=== PATIENT | male | born 1950 | race Hispanic/Latino ===

== ENCOUNTER 2017-07-25 21:11 | Emergency (ER) | payer OTHER ==
[2017-07-25 22:04] LABS: BASOPHILS % (AUTO) 0.9 % (0.0-5.0); EOSINOPHILS % (AUTO) 3.7 % (0.0-8.0); HEMATOCRIT 27.8 % (42-54); LYMPHOCYTES % (AUTO) 19.9 % (21.0-51.0); MEAN CORPUSCULAR HEMOGLOBIN 30.4 pg (27.0-33.0); MEAN CORPUSCULAR VOLUME 86.9 fL (79-99); MONOCYTES % (AUTO) 12.8 % (3.0-13.0); NEUTROPHILS % (AUTO) 62.7 % (40.0-77.0); NUCLEATED RED BLOOD CELLS 0.1 % (0.0-0.19); PLATELET COUNT (AUTO) 67 K/uL (130-400); RED CELL DISTRIBUTION WIDTH 14.4 % (11.0-15.5); WHITE BLOOD COUNT (AUTO) 2.3 K/uL (4.8-10.8)
[2017-07-25 22:21] LABS: CREATININE 1.6 mg/dL (0.5-1.5); POTASSIUM 3.7 mmol/L (3.5-5.1)
[2017-07-25 22:27] LABS: BAND NEUTROPHILS % (MANUAL) 1 % (0-2); BASOPHILS % (MANUAL) 1 % (0-2); EOSINOPHILS % (MANUAL) 5 % (1-6); LYMPHOCYTES % (MANUAL) 22 % (22-44); MAN.DIFF COMMENT-IMPRESSION MANUAL DIFFERENTIAL; MONOCYTES % (MANUAL) 8 % (2-9); REACTIVE LYMPHOCYTES 1 % (0-0); SEGMENTED NEUTROPHILS % 62 % (40-70)
[2017-07-25 22:28] LABS: B-TYPE NATRIURETIC PEPTIDE 127 pg/mL (0-100); PLATELET MORPHOLOGY COMMENT DECREASED
== END 2017-07-26 00:28 | disposition home or self-care (01) ==
LOC: EDH 21:11
DX: R60.9 Edema, unspecified (principal); D61.818 Other pancytopenia; E11.9 Type 2 diabetes mellitus without complications; E78.5 Hyperlipidemia, unspecified; I10 Essential (primary) hypertension
CPT/HCPCS: 36415; 80048; 83880; 84484; 85007; 85025; 93005; 93970

== ENCOUNTER 2018-01-02 09:53 | Emergency (ER) | payer OTHER ==
[2018-01-02] MEDS ORDERED: ACETAMINOPHEN EXTRA STRENGTH 500 MG TABLET ONE (10:15)
[2018-01-02 10:26] LABS: APPEARANCE,URINE Clear (CLEAR); BILIRUBIN,URINE Small (NEGATIVE); COLOR,URINE Dark Yellow (YELLOW); GLUCOSE, URINE (UA) Negative (NEGATIVE); KETONES,URINE Trace mg/dL (NEGATIVE); LEUKOCYTE ESTERASE ,URINE Trace (NEGATIVE); NITRATE,URINE Negative (NEGATIVE); OCCULT BLOOD,URINE Trace (NEGATIVE); PROTEIN,URINE POS 2+ (NEGATIVE)
[2018-01-02 11:09] LABS: BACTERIA,URINE Rare /HPF (None Seen); RBC,URINE 0-1 /HPF (0-1)
[2018-01-02 11:10] LABS: WBC,URINE 0-1 /HPF (0-1)
== END 2018-01-02 12:08 | disposition home or self-care (01) ==
LOC: EDH 09:53
DX: J06.9 Acute upper respiratory infection, unspecified (principal); E11.9 Type 2 diabetes mellitus without complications; E78.5 Hyperlipidemia, unspecified; I10 Essential (primary) hypertension; Z98.890 Other specified postprocedural states
CPT/HCPCS: 71045; 81001; 87804

== ENCOUNTER → 2018-06-01 | Outpatient (CLI) | payer OTHER | END | disposition home or self-care (01) | LOC: RAH 12:56 | PROVIDERS: ATTEND Internal Medicine | DX: D70.9 Neutropenia, unspecified (principal) | CPT/HCPCS: 93922 ==

== ENCOUNTER 2018-06-07 10:48 | Observation (INO) | payer OTHER ==
[~2018-06-07] VITALS: Ht 160 cm; Wt 111.7 kg
[2018-06-07] MEDS ORDERED: LIDOCAINE HCL-MPF 1% 2ML VIAL IJ PRN (12:00)
[2018-06-07] MEDS ORDERED: POTASSIUM CHLORIDE 20MEQ/100ML 100 ML IV PRN (12:00)
[2018-06-07] MEDS ORDERED: GUAIFENESIN-DM 200/20 MG 10 ML PO PRN (12:00)
[2018-06-07] MEDS ORDERED: ONDANSETRON HCL 4 MG/2 ML VIAL IVP PRN (12:00)
[2018-06-07] MEDS ORDERED: POTASSIUM CHLORIDE 10% ELIXIR 20 MEQ/15 ML UDCUP PO PRN (12:00)
[2018-06-07] MEDS ORDERED: ZOLPIDEM TARTRATE 5 MG TAB PO PRN (12:00)
[2018-06-07] MEDS ORDERED: SODIUM CHLORIDE 0.9% 10 ML VIAL IVP SCH (12:00)
[2018-06-07 12:57] VITALS: BP 165/72
[2018-06-07] MEDS ORDERED: FURO80TA3 PO (12:59)
[2018-06-07] MEDS ORDERED: LISI-613 PO (12:59)
[2018-06-07] MEDS ORDERED: GLIP10TA9 PO (12:59)
[2018-06-07] MEDS ORDERED: LINA5TAB PO (12:59)
[2018-06-07] MEDS ORDERED: FOLI1TAB15 PO (12:59)
[2018-06-07] MEDS ORDERED: PRAV20TA4 PO (12:59)
[2018-06-07 13:20] LABS: BASOPHILS % (AUTO) 0.3 % (0.0-5.0); CREATININE 1.7 mg/dL (0.5-1.5); EOSINOPHILS % (AUTO) 0.6 % (0.0-8.0); HEMATOCRIT 28.4 % (42-54); LYMPHOCYTES % (AUTO) 5.8 % (21.0-51.0); MEAN CORPUSCULAR HGB CONC 35.3 g/dL (32.0-36.0); MEAN CORPUSCULAR VOLUME 87.7 fL (79-99); MONOCYTES % (AUTO) 7.5 % (3.0-13.0); NEUTROPHILS % (AUTO) 85.8 % (40.0-77.0); PLATELET COUNT (AUTO) 59 K/uL (130-400); POTASSIUM 4.3 mmol/L (3.5-5.1); RED BLOOD CELL COUNT(AUTO) 3.24 MIL/uL (4.50-6.20); RED CELL DISTRIBUTION WIDTH 14.5 % (11.0-15.5); WHITE BLOOD COUNT (AUTO) 5.2 K/uL (4.8-10.8)
[2018-06-07 13:25] LABS: ALBUMIN 3.1 g/dL (3.5-5.0); BILIRUBIN,DIRECT 0.6 mg/dL (0.0-0.3); BILIRUBIN,TOTAL 2.7 mg/dL (0.2-1.0); TOTAL PROTEIN, SERUM 7.1 g/dL (6.0-8.3)
[2018-06-07 13:40] LABS: ALBUMIN 3.1 g/dL (3.5-5.0); BILIRUBIN,DIRECT 0.6 mg/dL (0.0-0.3); BILIRUBIN,TOTAL 2.9 mg/dL (0.2-1.0); CREATININE 1.8 mg/dL (0.5-1.5); POTASSIUM 4.4 mmol/L (3.5-5.1); TOTAL PROTEIN, SERUM 7.2 g/dL (6.0-8.3)
[2018-06-07 13:58] LABS: BASOPHILS % (AUTO) 0.8 % (0.0-5.0); EOSINOPHILS % (AUTO) 0.5 % (0.0-8.0); LYMPHOCYTES % (AUTO) 7.5 % (21.0-51.0); MEAN CORPUSCULAR HEMOGLOBIN 30.7 pg (27.0-33.0); MEAN CORPUSCULAR HGB CONC 34.7 g/dL (32.0-36.0); MEAN CORPUSCULAR VOLUME 88.4 fL (79-99); MONOCYTES % (AUTO) 8.3 % (3.0-13.0); NEUTROPHILS % (AUTO) 82.9 % (40.0-77.0); PLATELET COUNT (AUTO) 59 K/uL (130-400); RED BLOOD CELL COUNT(AUTO) 3.28 MIL/uL (4.50-6.20); RED CELL DISTRIBUTION WIDTH 14.5 % (11.0-15.5); WHITE BLOOD COUNT (AUTO) 5.5 K/uL (4.8-10.8)
[2018-06-07] MEDS: ACETAMINOPHEN 325 MG TAB PO PRN (14:07)
[2018-06-07 14:16] LABS: PLATELET MORPHOLOGY COMMENT DECREASED
[2018-06-07 15:09] LABS: APPEARANCE,URINE Clear (CLEAR); BILIRUBIN,URINE Negative (NEGATIVE); COLOR,URINE Dark Yellow (YELLOW); GLUCOSE, URINE (UA) Negative (NEGATIVE); KETONES,URINE Trace mg/dL (NEGATIVE); LEUKOCYTE ESTERASE ,URINE Negative (NEGATIVE); NITRATE,URINE Negative (NEGATIVE); OCCULT BLOOD,URINE Moderate (NEGATIVE); PH,URINE 5.5 (5.0-8.0); PROTEIN,URINE 300 (NEGATIVE)
[2018-06-07 15:53] LABS: BACTERIA,URINE Few /HPF (None Seen); RBC,URINE 0-1 /HPF (0-1); SQUAMOUS EPITHELIAL CELL,UR 0-2 /HPF (0-2); WBC,URINE 0-1 /HPF (0-1)
[2018-06-07 16:40] VITALS: BP 142/71
[2018-06-07] MEDS ORDERED: PHARMACY COMMUNICATION MISC SCH (19:00)
[2018-06-07] MEDS ORDERED: GLUCAGON 1MG KIT 1 MG ML IM PRN ×2 (19:15)
[2018-06-07] MEDS ORDERED: DEXTROSE 50%-WATER 50 ML DISP.SYRIN IV PRN ×2 (19:15)
[2018-06-07 19:45] VITALS: BP 126/59
[2018-06-07] MEDS: FAMOTIDINE 20MG TAB 20 MG TAB PO SCH (20:11)
[2018-06-07] MEDS: CEFTRIAXONE SODIUM 1 GM IVP SCH (20:11)
[2018-06-07 23:21] VITALS: BP 122/60
[2018-06-08 04:20] VITALS: BP 125/59
[2018-06-08 04:49] LABS: BASOPHILS % (AUTO) 0.6 % (0.0-5.0); EOSINOPHILS % (AUTO) 1.1 % (0.0-8.0); HEMATOCRIT 25.7 % (42-54); LYMPHOCYTES % (AUTO) 15.2 % (21.0-51.0); MEAN CORPUSCULAR VOLUME 88.5 fL (79-99); NEUTROPHILS % (AUTO) 72.1 % (40.0-77.0); PLATELET COUNT (AUTO) 52 K/uL (130-400); RED CELL DISTRIBUTION WIDTH 14.6 % (11.0-15.5)
[2018-06-08 05:06] LABS: ALBUMIN 2.6 g/dL (3.5-5.0); BILIRUBIN,DIRECT 0.5 mg/dL (0.0-0.3); BILIRUBIN,TOTAL 2.3 mg/dL (0.2-1.0); CREATININE 1.9 mg/dL (0.5-1.5); POTASSIUM 3.6 mmol/L (3.5-5.1)
[2018-06-08 05:08] LABS: INR 1.16 (0.85-1.15); PARTIAL THROMBOPLASTIN TIME 31.1 SEC (26.3-35.5); PROTHROMBIN TIME 12.1 SEC (9.6-11.6)
[2018-06-08] MEDS: HUMALOG PO SS1 SQ SCH ×2 (06:10→17:00)
[2018-06-08] MEDS: GLIPIZIDE 5 MG TABLET PO SCH ×2 (07:08→18:51)
[2018-06-08 07:50] VITALS: BP 171/78
[2018-06-08] MEDS: FOLIC ACID 1 MG TABLET PO SCH (08:03)
[2018-06-08] MEDS: LISINOPRIL 20 MG TABLET PO SCH (08:03)
[2018-06-08] MEDS: LINAGLIPTIN 5 MG TABLET PO SCH (08:03)
[2018-06-08] MEDS: ATORVASTATIN CALCIUM 10 MG TABLET PO SCH (08:03)
[2018-06-08] MEDS: FAMOTIDINE 20MG TAB 20 MG TAB PO SCH ×2 (08:06→21:08)
[2018-06-08] MEDS ORDERED: ALBUMIN (HUMAN) 25% 100 ML IV ONE (08:15)
[2018-06-08] MEDS ORDERED: FUROSEMIDE 10 MG/ML 4ML VIAL IV SCH (08:15)
[2018-06-08] MEDS: FUROSEMIDE 80 MG TABLET PO SCH (08:55)
[2018-06-08] MEDS: ENOXAPARIN SODIUM 30 MG/0.3 ML SQ SCH ×2 (08:56→10:26)
[2018-06-08 11:35] VITALS: BP 131/63
[2018-06-08 16:37] VITALS: BP 162/76
[2018-06-08 20:00] VITALS: BP 163/78
[2018-06-08] MEDS: CEFTRIAXONE SODIUM 1 GM IVP SCH (21:08)
[2018-06-08] MEDS: ACETAMINOPHEN 325 MG TAB PO PRN (21:16)
[2018-06-09] VITALS: BP 129/62
[2018-06-09 04:00] VITALS: BP 133/70
[2018-06-09 05:32] LABS: BASOPHILS % (AUTO) 0.7 % (0.0-5.0); EOSINOPHILS % (AUTO) 3.4 % (0.0-8.0); HEMATOCRIT 26.4 % (42-54); LYMPHOCYTES % (AUTO) 26.1 % (21.0-51.0); MEAN CORPUSCULAR HEMOGLOBIN 30.8 pg (27.0-33.0); MEAN CORPUSCULAR HGB CONC 34.8 g/dL (32.0-36.0); MEAN CORPUSCULAR VOLUME 88.4 fL (79-99); MONOCYTES % (AUTO) 12.7 % (3.0-13.0); NEUTROPHILS % (AUTO) 57.1 % (40.0-77.0); PLATELET COUNT (AUTO) 67 K/uL (130-400); RED BLOOD CELL COUNT(AUTO) 2.98 MIL/uL (4.50-6.20); RED CELL DISTRIBUTION WIDTH 14.7 % (11.0-15.5)
[2018-06-09 05:42] LABS: CREATININE 1.9 mg/dL (0.5-1.5); POTASSIUM 3.3 mmol/L (3.5-5.1)
[2018-06-09] MEDS: POTASSIUM CHLORIDE 20 MEQ ERTAB PO PRN ×3 (06:12→09:57)
[2018-06-09 07:51] VITALS: BP 139/75
[2018-06-09] MEDS: HUMALOG PO SS1 SQ SCH (08:00)
[2018-06-09] MEDS: ATORVASTATIN CALCIUM 10 MG TABLET PO SCH (09:46)
[2018-06-09] MEDS: LINAGLIPTIN 5 MG TABLET PO SCH (09:47)
[2018-06-09] MEDS: LISINOPRIL 20 MG TABLET PO SCH (09:47)
[2018-06-09] MEDS: FUROSEMIDE 80 MG TABLET PO SCH (09:47)
[2018-06-09] MEDS: ENOXAPARIN SODIUM 30 MG/0.3 ML SQ SCH (09:47)
[2018-06-09] MEDS: FAMOTIDINE 20MG TAB 20 MG TAB PO SCH (09:47)
[2018-06-09] MEDS: FOLIC ACID 1 MG TABLET PO SCH (09:47)
[2018-06-09] MEDS: GLIPIZIDE 5 MG TABLET PO SCH (09:57)
[2018-06-09 11:17] VITALS: BP 146/71
[2018-06-09] MEDS: CEFTRIAXONE SODIUM 1 GM IVP SCH (14:05)
== END 2018-06-09 14:54 | disposition home or self-care (01) ==
LOC: EDH 10:48 → EDHIP 10:49 → 4BH 12:40
PROVIDERS: ADMIT Internal Medicine; ATTEND Internal Medicine
DX: L03.116 Cellulitis of left lower limb (principal); M79.662 Pain in left lower leg; I12.9 Hypertensive chronic kidney disease with stage 1 through stage 4 chronic kidney disease, or unspecified chronic kidney disease; N18.3 Chronic kidney disease, stage 3 (moderate); E11.22 Type 2 diabetes mellitus with diabetic chronic kidney disease; E78.5 Hyperlipidemia, unspecified; K70.30 Alcoholic cirrhosis of liver without ascites; D61.818 Other pancytopenia; D73.1 Hypersplenism; K76.6 Portal hypertension
CPT/HCPCS: 36415 ×3; 80048 ×4; 80076 ×3; 81001; 82948 ×6; 85025 ×4; 85610; 85730; 87040 ×2; 93970; 96365; 96366; 96372 ×2; 96375 ×2; 96376 ×2; 99284; G0378 ×52; J0696 ×3; J1650 ×2; J1940; P9046

== ENCOUNTER 2018-08-03 21:25 | Emergency (ER) | payer OTHER ==
[~2018-08-03 21:25] MED LIST: FOLI1TAB15 PO; FURO80TA3 PO; GLIP10TA9 PO; LINA5TAB PO; LISI-613 PO; PRAV20TA4 PO
[2018-08-03] MEDS ORDERED: INSULIN HUMULIN R 100 UNIT/ML 3ML ONE (21:54)
[2018-08-03 21:56] LABS: BASOPHILS % (AUTO) 0.7 % (0.0-5.0); EOSINOPHILS % (AUTO) 27.9 % (0.0-8.0); LYMPHOCYTES % (AUTO) 23.4 % (21.0-51.0); MEAN CORPUSCULAR HGB CONC 35.3 g/dL (32.0-36.0); MEAN CORPUSCULAR VOLUME 87.7 fL (79-99); MONOCYTES % (AUTO) 7.4 % (3.0-13.0); NEUTROPHILS % (AUTO) 40.6 % (40.0-77.0); NUCLEATED RED BLOOD CELLS 0.1 % (0.0-0.19); PLATELET COUNT (AUTO) 70 K/uL (130-400); RED BLOOD CELL COUNT(AUTO) 3.65 MIL/uL (4.50-6.20); WHITE BLOOD COUNT (AUTO) 4.2 K/uL (4.8-10.8)
[2018-08-03 22:00] LABS: APPEARANCE,URINE Clear (CLEAR); BILIRUBIN,URINE Negative (NEGATIVE); COLOR,URINE Yellow (YELLOW); GLUCOSE, URINE (UA) >=1000 mg/dL (NEGATIVE); KETONES,URINE Negative (NEGATIVE); LEUKOCYTE ESTERASE ,URINE Negative (NEGATIVE); NITRATE,URINE Negative (NEGATIVE); OCCULT BLOOD,URINE Negative (NEGATIVE); PROTEIN,URINE Trace mg/dL (NEGATIVE)
[2018-08-03 22:08] LABS: INR 1.06 (0.85-1.15); PARTIAL THROMBOPLASTIN TIME 25.5 SEC (26.3-35.5); PROTHROMBIN TIME 11.1 SEC (9.6-11.6)
[2018-08-03 22:16] LABS: BACTERIA,URINE Rare /HPF (None Seen); RBC,URINE 0-1 /HPF (0-1); SQUAMOUS EPITHELIAL CELL,UR Few /HPF (0-2); WBC,URINE 0-1 /HPF (0-1)
[2018-08-03 22:17] LABS: ALBUMIN 3.3 g/dL (3.5-5.0); BILIRUBIN,TOTAL 1.1 mg/dL (0.2-1.0); CREATININE 2.7 mg/dL (0.5-1.5); POTASSIUM 3.8 mmol/L (3.5-5.1); TOTAL PROTEIN, SERUM 7.4 g/dL (6.0-8.3)
[2018-08-03 22:20] LABS: PLATELET MORPHOLOGY COMMENT DECREASED
== END 2018-08-03 23:45 | disposition home or self-care (01) ==
LOC: EDH 21:25
DX: E11.65 Type 2 diabetes mellitus with hyperglycemia (principal); E86.0 Dehydration; I10 Essential (primary) hypertension; E11.9 Type 2 diabetes mellitus without complications; E78.5 Hyperlipidemia, unspecified; Z98.890 Other specified postprocedural states
CPT/HCPCS: 36415; 70450; 71045; 80053; 81001; 82550; 82948 ×2; 84484; 85025; 85610; 85730; 93005; 96361; 96374; 99285; J1815

== ENCOUNTER → 2018-10-28 | Outpatient (CLI) | payer OTHER ==
[~2018-10-28] MED LIST changes: +FURO40TA5 PO; -FURO80TA3 PO; -LISI-613 PO; +LISI40TA4 PO; +MULT-1289 PO; +OMEP40CA37 PO; +SPIR50TA5 PO; +SUCR1TAB2 PO
== END | disposition home or self-care (01) ==
LOC: RAH 07:19
PROVIDERS: ATTEND Internal Medicine Gastroenterology
DX: K74.60 Unspecified cirrhosis of liver (principal); R18.8 Other ascites
CPT/HCPCS: 76700; 93975

== ENCOUNTER 2018-12-01 05:45 | Day surgery (SDC) | payer OTHER ==
[~2018-12-01] VITALS: Ht 160 cm; Wt 111.1 kg
[~2018-12-01 05:45] MED LIST changes: +SODIUM CHLORIDE 0.9% 1000ML 1,000 ML IV ONE
[2018-12-01 06:10] VITALS: BP 177/84
[2018-12-01] MEDS ORDERED: LIDOCAINE HCL 1% 20 ML VIAL ONE (06:21)
[2018-12-01] MEDS ORDERED: PROPOFOL 10 MG/ML 20ML VIAL IV ONE (06:21)
[2018-12-01 07:41] VITALS: BP 124/74
[2018-12-01 07:47] VITALS: BP 145/76
[2018-12-01 07:52] VITALS: BP 164/83
== END 2018-12-01 08:20 | disposition home or self-care (01) ==
LOC: DAH 05:45 → ENDO 05:45
PROVIDERS: ATTEND Internal Medicine Gastroenterology
DX: I85.00 Esophageal varices without bleeding (principal); K76.6 Portal hypertension; K70.30 Alcoholic cirrhosis of liver without ascites; K31.89 Other diseases of stomach and duodenum; E11.9 Type 2 diabetes mellitus without complications; I10 Essential (primary) hypertension; Z79.899 Other long term (current) drug therapy; Z79.84 Long term (current) use of oral hypoglycemic drugs; Z86.010 Personal history of colon polyps; Z98.890 Other specified postprocedural states; Z72.89 Other problems related to lifestyle; Z82.49 Family history of ischemic heart disease and other diseases of the circulatory system; Z83.3 Family history of diabetes mellitus; Z82.3 Family history of stroke
CPT/HCPCS: 43244; 82948 ×2; A4606; J2704; J7030; 43239; 45378

== ENCOUNTER → 2018-12-09 | Outpatient (CLI) | payer OTHER ==
[~2018-12-09] MED LIST changes: -SODIUM CHLORIDE 0.9% 1000ML 1,000 ML IV ONE
== END | disposition home or self-care (01) ==
LOC: SHCH 08:10
PROVIDERS: ATTEND Internal Medicine Cardiovascular Disease
DX: I11.0 Hypertensive heart disease with heart failure (principal); I50.32 Chronic diastolic (congestive) heart failure; I35.1 Nonrheumatic aortic (valve) insufficiency
CPT/HCPCS: 93306

== ENCOUNTER → 2019-01-11 | Outpatient (CLI) | payer OTHER ==
[~2019-01-11] MED LIST changes: +OMEP40CA13 PO; -OMEP40CA37 PO
== END | disposition home or self-care (01) ==
LOC: SHCH 15:19
PROVIDERS: ATTEND Internal Medicine Cardiovascular Disease
DX: Z09 Encounter for follow-up examination after completed treatment for conditions other than malignant neoplasm (principal)
CPT/HCPCS: 93971

== ENCOUNTER → 2019-04-20 | Outpatient (CLI) | payer OTHER | END | disposition home or self-care (01) | LOC: RAH 07:54 | PROVIDERS: ATTEND Internal Medicine Gastroenterology | DX: K74.60 Unspecified cirrhosis of liver (principal) | CPT/HCPCS: 76700; 93975 ==

== ENCOUNTER 2019-07-13 20:10 | Emergency (ER) | payer OTHER ==
[2019-07-13] MEDS ORDERED: ONDANSETRON HCL 4 MG/2 ML VIAL ONE (20:51)
[2019-07-13 21:40] LABS: ABG OXYGEN SATURATION 63.8 % (95.0-99.0); BASE EXCESS,VENOUS BLOOD GAS -2.7 (-2.0-3.0); HCO3,VENOUS BLOOD GAS 22.2 (21.0-28.0); PCO2,VENOUS BLOOD GAS 39 (35-48); PH,VENOUS BLOOD GAS 7.375 (7.350-7.450)
[2019-07-13 21:41] LABS: BASOPHILS % (AUTO) 0.4 % (0.0-5.0); EOSINOPHILS % (AUTO) 0.9 % (0.0-8.0); HEMATOCRIT 34.5 % (42-54); LYMPHOCYTES % (AUTO) 16.4 % (21.0-51.0); MEAN CORPUSCULAR HEMOGLOBIN 31.4 pg (27.0-33.0); MEAN CORPUSCULAR HGB CONC 35.9 g/dL (32.0-36.0); MEAN CORPUSCULAR VOLUME 87.3 fL (79-99); MONOCYTES % (AUTO) 8.2 % (3.0-13.0); NEUTROPHILS % (AUTO) 73.7 % (40.0-77.0); PLATELET COUNT (AUTO) 87 K/uL (130-400); RED BLOOD CELL COUNT(AUTO) 3.95 MIL/uL (4.50-6.20); RED CELL DISTRIBUTION WIDTH 12.7 % (11.0-15.5); WHITE BLOOD COUNT (AUTO) 5.4 K/uL (4.8-10.8)
[2019-07-13 22:00] LABS: ALBUMIN 3.5 g/dL (3.5-5.0); BILIRUBIN,DIRECT 0.4 mg/dL (0.0-0.3); BILIRUBIN,TOTAL 1.6 mg/dL (0.2-1.0); CREATININE 3.2 mg/dL (0.5-1.5); POTASSIUM 4.6 mmol/L (3.5-5.1)
[2019-07-13] MEDS ORDERED: INSULIN HUMULIN R 100 UNIT/ML 3ML ONE (22:02)
== END 2019-07-13 23:26 | disposition home or self-care (01) ==
LOC: EDH 20:10
DX: J20.9 Acute bronchitis, unspecified (principal); E11.65 Type 2 diabetes mellitus with hyperglycemia; R19.7 Diarrhea, unspecified; I10 Essential (primary) hypertension; E78.5 Hyperlipidemia, unspecified; Z98.890 Other specified postprocedural states
CPT/HCPCS: 36415; 36600; 71045; 80048; 80076; 82435; 82550; 82803; 82947; 82948; 83605; 83690; 84132; 84295; 85025; 87804 ×2; 93005; 96361; 96374; 96375; 99285; J1815; J2405

== ENCOUNTER 2019-07-17 18:57 | Emergency (ER) | payer OTHER ==
[2019-07-17] MEDS ORDERED: MECLIZINE HCL 25 MG TABLET ONE (19:34)
[2019-07-17 19:57] LABS: BASOPHILS % (AUTO) 0.5 % (0.0-5.0); EOSINOPHILS % (AUTO) 1.2 % (0.0-8.0); HEMATOCRIT 34.4 % (42-54); LYMPHOCYTES % (AUTO) 16.6 % (21.0-51.0); MEAN CORPUSCULAR HGB CONC 35.5 g/dL (32.0-36.0); MEAN CORPUSCULAR VOLUME 87.5 fL (79-99); MONOCYTES % (AUTO) 9.5 % (3.0-13.0); PLATELET COUNT (AUTO) 64 K/uL (130-400); RED BLOOD CELL COUNT(AUTO) 3.93 MIL/uL (4.50-6.20); RED CELL DISTRIBUTION WIDTH 12.8 % (11.0-15.5); WHITE BLOOD COUNT (AUTO) 4.2 K/uL (4.8-10.8)
[2019-07-17 19:59] LABS: APPEARANCE,URINE Clear (CLEAR); BILIRUBIN,URINE Negative (NEGATIVE); COLOR,URINE Yellow (YELLOW); GLUCOSE, URINE (UA) >=1000 mg/dL (NEGATIVE); KETONES,URINE Negative (NEGATIVE); LEUKOCYTE ESTERASE ,URINE Negative (NEGATIVE); NITRATE,URINE Negative (NEGATIVE); OCCULT BLOOD,URINE Negative (NEGATIVE); PH,URINE 5.5 (5.0-8.0); PROTEIN,URINE Negative (NEGATIVE)
[2019-07-17 20:11] LABS: ALBUMIN 3.2 g/dL (3.5-5.0); BILIRUBIN,TOTAL 1.3 mg/dL (0.2-1.0); CREATININE 2.8 mg/dL (0.5-1.5); POTASSIUM 4.7 mmol/L (3.5-5.1); TOTAL PROTEIN, SERUM 7.4 g/dL (6.0-8.3)
[2019-07-17] MEDS ORDERED: INSULIN HUMULIN R 100 UNIT/ML 3ML ONE ×2 (20:22→21:42)
[2019-07-17 20:24] LABS: BACTERIA,URINE Rare /HPF (None Seen); RBC,URINE None Seen /HPF (0-1); SQUAMOUS EPITHELIAL CELL,UR 0-2 /HPF (0-2); WBC,URINE None Seen /HPF (0-1)
== END 2019-07-17 23:15 | disposition home or self-care (01) ==
LOC: EDH 18:57
DX: E11.65 Type 2 diabetes mellitus with hyperglycemia (principal); I12.9 Hypertensive chronic kidney disease with stage 1 through stage 4 chronic kidney disease, or unspecified chronic kidney disease; E11.22 Type 2 diabetes mellitus with diabetic chronic kidney disease; N18.9 Chronic kidney disease, unspecified; E78.5 Hyperlipidemia, unspecified
CPT/HCPCS: 36415; 80053; 81001; 82550; 82948 ×3; 84484; 85025; 93005; 96361; 96374; 96376; 99284; J1815 ×2

== ENCOUNTER → 2019-12-09 | Outpatient (CLI) | payer OTHER | END | disposition home or self-care (01) | LOC: SHCH 14:58 | PROVIDERS: ATTEND Internal Medicine Cardiovascular Disease | DX: I87.2 Venous insufficiency (chronic) (peripheral) (principal) | CPT/HCPCS: 93970 ==

== ENCOUNTER → 2020-01-24 | Outpatient (CLI) | payer OTHER | END | disposition home or self-care (01) | LOC: SHCH 15:35 | PROVIDERS: ATTEND Internal Medicine Cardiovascular Disease | DX: I77.1 Stricture of artery (principal); I87.2 Venous insufficiency (chronic) (peripheral); Z09 Encounter for follow-up examination after completed treatment for conditions other than malignant neoplasm | CPT/HCPCS: 93971 ==

== ENCOUNTER 2020-05-16 18:28 | Inpatient (IN) | payer OTHER ==
[~2020-05-16] VITALS: Ht 162.6 cm; Wt 107.0 kg
[~2020-05-16 18:28] MED LIST changes: -LISI40TA4 PO; +LISI40TA9 PO; -OMEP40CA13 PO; +OMEP40CA21 PO
[2020-05-16 18:45] LABS: BASOPHILS % (AUTO) 0.2 % (0.0-5.0); EOSINOPHILS % (AUTO) 1.8 % (0.0-8.0); HEMATOCRIT 21.4 % (42-54); LYMPHOCYTES % (AUTO) 5.1 % (21.0-51.0); MEAN CORPUSCULAR HEMOGLOBIN 30.7 pg (27.0-33.0); MEAN CORPUSCULAR HGB CONC 32.2 g/dL (32.0-36.0); MEAN CORPUSCULAR VOLUME 95.1 fL (79-99); MONOCYTES % (AUTO) 2.9 % (3.0-13.0); NEUTROPHILS % (AUTO) 89.6 % (40.0-77.0); PLATELET COUNT (AUTO) 78 K/uL (130-400); RED BLOOD CELL COUNT(AUTO) 2.25 MIL/uL (4.50-6.20); RED CELL DISTRIBUTION WIDTH 19.9 % (11.0-15.5); WHITE BLOOD COUNT (AUTO) 4.9 K/uL (4.8-10.8)
[2020-05-16] MEDS ORDERED: ACETAMINOPHEN 500 MG TABLET ONE (18:47)
[2020-05-16 19:09] LABS: CARBON DIOXIDE 24 mmol/L (21-32); CHLORIDE 104 mmol/L (101-111); CREATININE 2.4 mg/dL (0.5-1.5); GLOMERULAR FILTR. RATE CALC 29 mL/min (>60); GLUCOSE,RANDOM 148 mg/dL (70-105); POTASSIUM 4.3 mmol/L (3.5-5.1); SODIUM SERUM 138 mmol/L (136-145); UREA NITROGEN, BLOOD 45 mg/dL (7-18)
[2020-05-16 19:15] LABS: INR 1.11 (0.85-1.15)
[2020-05-16 19:17] LABS: PARTIAL THROMBOPLASTIN TIME 23.9 SEC (26.3-35.5)
[2020-05-16 19:24] LABS: ALANINE AMINOTRANSFERASE 22 U/L (12-78); ALBUMIN 3.5 g/dL (3.5-5.0); ASPARTATE AMINOTRANSFERASE 35 U/L (10-37); BILIRUBIN,TOTAL 1.7 mg/dL (0.2-1.0); CREATINE KINASE, TOTAL 59 U/L (21-232); MYOGLOBIN 70 ng/mL (10-92); TOTAL PROTEIN, SERUM 7.7 g/dL (6.0-8.3); TROPONIN I < 0.04 ng/mL (0.00-0.06)
[2020-05-16] MEDS ORDERED: 0.9% NACL 500ML IV.SOLN 500 ML IV ONE (19:36)
[2020-05-16 19:59] LABS: PLATELET MORPHOLOGY DECREASED
[2020-05-16] MEDS ORDERED: VANCOMYCIN 1G/250ML KIT 250 ML IV ONE (21:53)
[2020-05-16] MEDS: CEFTRIAXONE 1G VIAL IVP SCH (22:00)
[2020-05-16] MEDS ORDERED: 0.9%NACL 10ML VIAL IVP PRN (22:15)
[2020-05-16] MEDS: 1/2 NS 1000ML 1,000 ML IV SCH (22:15)
[2020-05-16] MEDS ORDERED: COMPOUND IV REFRIGERATED 1 EACH IVSOLN MISC PRN (22:15)
[2020-05-16] MEDS ORDERED: VANCOMYCIN PROTOCOL PER PHARMACY IV SCH (22:15)
[2020-05-16] MEDS ORDERED: CEFTRIAXONE 1G VIAL ONE (23:29)
[2020-05-17 07:07] LABS: BASOPHILS % (AUTO) 0.2 % (0.0-5.0); EOSINOPHILS % (AUTO) 0.5 % (0.0-8.0); LYMPHOCYTES % (AUTO) 9.4 % (21.0-51.0); MEAN CORPUSCULAR HEMOGLOBIN 30.5 pg (27.0-33.0); MEAN CORPUSCULAR HGB CONC 31.4 g/dL (32.0-36.0); MEAN CORPUSCULAR VOLUME 97.1 fL (79-99); MONOCYTES % (AUTO) 9.8 % (3.0-13.0); NEUTROPHILS % (AUTO) 79.6 % (40.0-77.0); PLATELET COUNT (AUTO) 52 K/uL (130-400); RED BLOOD CELL COUNT(AUTO) 1.74 MIL/uL (4.50-6.20); WHITE BLOOD COUNT (AUTO) 4.4 K/uL (4.8-10.8)
[2020-05-17 07:14] LABS: HEMATOCRIT 16.9 % (42-54)
[2020-05-17 07:20] LABS: ALBUMIN 2.6 g/dL (3.5-5.0); BILIRUBIN,TOTAL 1.1 mg/dL (0.2-1.0); CREATININE 2.7 mg/dL (0.5-1.5); POTASSIUM 4.1 mmol/L (3.5-5.1); TOTAL PROTEIN, SERUM 5.9 g/dL (6.0-8.3)
[2020-05-17] MEDS: LINEZOLID 600 MG/ISO-OSM 300 ML IV SCH ×2 (08:30→23:56)
[2020-05-17] MEDS ORDERED: INSULIN HUMULIN R 100 UNIT/ML 3ML ONE (08:33)
[2020-05-17] MEDS ORDERED: PNEUMOCOCCAL VACCINE POLYVALENT 0.5 ML/VIAL [PPV] IM ONE (09:00)
[2020-05-17] MEDS ORDERED: FURO80TA3 PO (09:38)
[2020-05-17] MEDS ORDERED: METO5TAB7 PO (09:40)
[2020-05-17] MEDS ORDERED: PROP10TA10 PO (09:42)
[2020-05-17] MEDS ORDERED: INSU100V37 SQ (09:43)
[2020-05-17] MEDS: PNEUMOCOCCAL VACCINE POLYVALENT 0.5 ML/VIAL [PPV] IM SCH (09:45)
[2020-05-17] MEDS ORDERED: 1/2 NS 1000ML 1,000 ML IV ONE (10:29)
[2020-05-17 11:30] LABS: APPEARANCE,URINE Clear (CLEAR); BILIRUBIN,URINE Negative (NEGATIVE); COLOR,URINE Yellow (YELLOW); GLUCOSE, URINE (UA) Negative (NEGATIVE); KETONES,URINE Negative (NEGATIVE); LEUKOCYTE ESTERASE ,URINE Negative (NEGATIVE); NITRATE,URINE Negative (NEGATIVE); OCCULT BLOOD,URINE Negative (NEGATIVE); PH,URINE 5.5 (5.0-8.0); PROTEIN,URINE Negative (NEGATIVE)
[2020-05-17] MEDS: 1/2 NS 1000ML 1,000 ML IV SCH (11:35)
[2020-05-17] MEDS ORDERED: 0.9%NACL 100ML 100 ML IV ONE (12:28)
[2020-05-17] MEDS ORDERED: VANCOMYCIN 1G 1.5 GM in 0.9% NACL 250ML 250 ML IV SCH (15:00)
[2020-05-17 18:46] LABS: HEMATOCRIT 22.1 % (42-54)
[2020-05-17 20:55] LABS: CREATININE 2.6 mg/dL (0.5-1.5); POTASSIUM 3.6 mmol/L (3.5-5.1)
[2020-05-17 20:59] LABS: ALBUMIN 2.8 g/dL (3.5-5.0); BILIRUBIN,TOTAL 1.4 mg/dL (0.2-1.0); TOTAL PROTEIN, SERUM 6.6 g/dL (6.0-8.3)
[2020-05-17] MEDS: INSULIN R PO SS1 SQ SCH (21:00)
[2020-05-17] MEDS: CEFTRIAXONE 1G VIAL IVP SCH (22:00)
[2020-05-17 23:30] VITALS: BP 156/64
[2020-05-18] VITALS (17 sets, daily range): BP systolic 83–146; BP diastolic 37–80
[2020-05-18] MEDS: 1/2 NS 1000ML 1,000 ML IV SCH ×2 (00:55→14:15)
[2020-05-18 04:36] LABS: BASOPHILS % (AUTO) 0.3 % (0.0-5.0); EOSINOPHILS % (AUTO) 2.7 % (0.0-8.0); LYMPHOCYTES % (AUTO) 11.6 % (21.0-51.0); MEAN CORPUSCULAR HEMOGLOBIN 31.1 pg (27.0-33.0); MEAN CORPUSCULAR HGB CONC 33.2 g/dL (32.0-36.0); MEAN CORPUSCULAR VOLUME 93.9 fL (79-99); MONOCYTES % (AUTO) 11.3 % (3.0-13.0); NEUTROPHILS % (AUTO) 73.8 % (40.0-77.0); PLATELET COUNT (AUTO) 62 K/uL (130-400); RED BLOOD CELL COUNT(AUTO) 2.12 MIL/uL (4.50-6.20); RED CELL DISTRIBUTION WIDTH 19.1 % (11.0-15.5); WHITE BLOOD COUNT (AUTO) 3.7 K/uL (4.8-10.8)
[2020-05-18 04:40] LABS: HEMATOCRIT 19.9 % (42-54)
[2020-05-18 04:55] LABS: ALBUMIN 2.6 g/dL (3.5-5.0); BILIRUBIN,DIRECT 0.4 mg/dL (0.0-0.3); BILIRUBIN,TOTAL 1.3 mg/dL (0.2-1.0); CREATININE 2.3 mg/dL (0.5-1.5); POTASSIUM 3.7 mmol/L (3.5-5.1); TOTAL PROTEIN, SERUM 6.2 g/dL (6.0-8.3)
[2020-05-18] MEDS ORDERED: 0.9% NACL 250ML 250 ML IV ONE (05:26)
[2020-05-18] MEDS: INSULIN R PO SS1 SQ SCH ×2 (06:04→11:30)
[2020-05-18] MEDS ORDERED: PROPOFOL 10 MG/ML 20ML VIAL IV ONE (08:03)
[2020-05-18] MEDS ORDERED: LACT10SO9 PO (09:01)
[2020-05-18] MEDS: PANTOPRAZOLE 40 MG/VIAL IVP SCH (09:07)
[2020-05-18 09:24] LABS: HEMATOCRIT 21.7 % (42-54)
[2020-05-18] MEDS: PNEUMOCOCCAL VACCINE POLYVALENT 0.5 ML/VIAL [PPV] IM SCH (09:45)
[2020-05-18] MEDS: LINEZOLID 600 MG/ISO-OSM 300 ML IV SCH ×2 (09:50→21:15)
[2020-05-18] MEDS: LACTULOSE 20 GM/30 ML UDCUP PO SCH ×2 (10:02→21:15)
[2020-05-18] MEDS ORDERED: GLUCAGON 1MG KIT 1 MG ML IM PRN (15:15)
[2020-05-18] MEDS ORDERED: PHARMACY COMMUNICATION MISC SCH ×2 (15:15)
[2020-05-18] MEDS ORDERED: DEXTROSE 50%-WATER 50 ML DISP.SYRIN IV PRN (15:15)
[2020-05-18 15:18] LABS: HEMATOCRIT 24.2 % (42-54)
[2020-05-18] MEDS: HUMALOG PO SS1 SQ SCH ×2 (17:11→21:38)
[2020-05-18] MEDS: CEFTRIAXONE 1G VIAL IVP SCH (21:16)
[2020-05-19 03:25] VITALS: BP 138/54
[2020-05-19 05:39] LABS: BASOPHILS % (AUTO) 0.7 % (0.0-5.0); EOSINOPHILS % (AUTO) 4.7 % (0.0-8.0); HEMATOCRIT 23.7 % (42-54); LYMPHOCYTES % (AUTO) 18.1 % (21.0-51.0); MEAN CORPUSCULAR HEMOGLOBIN 29.8 pg (27.0-33.0); MEAN CORPUSCULAR HGB CONC 32.1 g/dL (32.0-36.0); MEAN CORPUSCULAR VOLUME 92.9 fL (79-99); MONOCYTES % (AUTO) 10.4 % (3.0-13.0); NEUTROPHILS % (AUTO) 65.8 % (40.0-77.0); PLATELET COUNT (AUTO) 63 K/uL (130-400); RED BLOOD CELL COUNT(AUTO) 2.55 MIL/uL (4.50-6.20); RED CELL DISTRIBUTION WIDTH 18.4 % (11.0-15.5)
[2020-05-19 06:08] LABS: ALBUMIN 2.5 g/dL (3.5-5.0); BILIRUBIN,TOTAL 1.1 mg/dL (0.2-1.0); POTASSIUM 3.9 mmol/L (3.5-5.1); TOTAL PROTEIN, SERUM 6.2 g/dL (6.0-8.3)
[2020-05-19] MEDS: HUMALOG PO SS1 SQ SCH ×2 (07:30→11:51)
[2020-05-19 08:00] VITALS: BP 160/73
[2020-05-19] MEDS: PNEUMOCOCCAL VACCINE POLYVALENT 0.5 ML/VIAL [PPV] IM SCH (09:45)
[2020-05-19] MEDS: PANTOPRAZOLE 40 MG/VIAL IVP SCH (09:49)
[2020-05-19] MEDS: LINEZOLID 600 MG/ISO-OSM 300 ML IV SCH (09:50)
[2020-05-19] MEDS: LACTULOSE 20 GM/30 ML UDCUP PO SCH (09:50)
[2020-05-19] MEDS ORDERED: HONEY 1 APPL/ML TUBE TP SCH (11:45)
[2020-05-19] MEDS ORDERED: HONEY 1 APPL/ML TUBE TP ONE (11:48)
[2020-05-19 12:00] VITALS: BP 143/76
== END 2020-05-19 12:35 | disposition home or self-care (01) | DRG 603 ==
LOC: EDH 18:28 → OBSVTOIN 21:35 → EDHIP 21:35 → 3AH 05-17 21:42
PROVIDERS: ADMIT Internal Medicine; ATTEND Internal Medicine
PROC: 3E0234Z Introduction of Serum, Toxoid and Vaccine into Muscle, Percutaneous Approach (ICD-10-PCS; principal; 2020-05-17)
PROC: 30233N1 Transfusion of Nonautologous Red Blood Cells into Peripheral Vein, Percutaneous Approach (ICD-10-PCS; 2020-05-17)
PROC: 0DB98ZX Excision of Duodenum, Via Natural or Artificial Opening Endoscopic, Diagnostic (ICD-10-PCS; 2020-05-18)
PROC: 0DB68ZX Excision of Stomach, Via Natural or Artificial Opening Endoscopic, Diagnostic (ICD-10-PCS; 2020-05-18)
DX: L03.115 Cellulitis of right lower limb (principal); N17.9 Acute kidney failure, unspecified; N18.4 Chronic kidney disease, stage 4 (severe); L97.919 Non-pressure chronic ulcer of unspecified part of right lower leg with unspecified severity; Z68.41 Body mass index [BMI] 40.0-44.9, adult; D50.9 Iron deficiency anemia, unspecified; I12.9 Hypertensive chronic kidney disease with stage 1 through stage 4 chronic kidney disease, or unspecified chronic kidney disease; E11.22 Type 2 diabetes mellitus with diabetic chronic kidney disease; D69.59 Other secondary thrombocytopenia; K72.90 Hepatic failure, unspecified without coma; Z20.822 Contact with and (suspected) exposure to COVID-19; E11.51 Type 2 diabetes mellitus with diabetic peripheral angiopathy without gangrene; E78.5 Hyperlipidemia, unspecified; I25.10 Atherosclerotic heart disease of native coronary artery without angina pectoris; K74.60 Unspecified cirrhosis of liver; E11.621 Type 2 diabetes mellitus with foot ulcer; E66.9 Obesity, unspecified; K22.8 Other specified diseases of esophagus; K29.70 Gastritis, unspecified, without bleeding; R19.5 Other fecal abnormalities; Z23 Encounter for immunization
CPT/HCPCS: 36415; 36430; 43239; 71045; 73590; 76700; 80048; 80053; 80076; 81003; 82140; 82270; 82550; 82948; 83605; 83874; 84145; 84484; 85014; 85018; 85025; 85610; 85730; 86850; 86900; 86901; 86923; 87040; 87088; 87426; 87804; 88305; 88342; 90732; 93005; A4606; C9113; G0378; J0696; J1815; J2020; J2704; J3370; J7040; J7050; P9016; U0003

== ENCOUNTER 2020-07-10 15:18 | Inpatient (IN) | payer OTHER ==
[~2020-07-10] VITALS: Ht 162.6 cm; Wt 99.7 kg
[~2020-07-10 15:18] MED LIST changes: -FURO40TA5 PO; +FURO80TA3 PO; -GLIP10TA9 PO; +INSU100V37 SQ; +LACT10SO9 PO; -LINA5TAB PO; -LISI40TA9 PO; +METO5TAB7 PO; -MULT-1289 PO; -PRAV20TA4 PO; +PROP10TA10 PO
[2020-07-10] MEDS ORDERED: GUAIFENESIN-DM 200/20 MG 10 ML PO PRN (16:15)
[2020-07-10] MEDS ORDERED: ONDANSETRON 4MG INJ IVP PRN (16:15)
[2020-07-10] MEDS ORDERED: ZOLPIDEM TARTRATE 5 MG TAB PO PRN (16:15)
[2020-07-10] MEDS ORDERED: DIPHENHYDRAMINE HCL 25 MG CAPSULE PO PRN (16:15)
[2020-07-10] MEDS ORDERED: 0.9%NACL 10ML VIAL IVP SCH (16:15)
[2020-07-10] MEDS ORDERED: ACETAMINOPHEN 325 MG TAB PO PRN (16:15)
[2020-07-10 16:51] LABS: CREATININE 1.9 mg/dL (0.5-1.5); POTASSIUM 3.9 mmol/L (3.5-5.1)
[2020-07-10 16:56] LABS: ALBUMIN 3.4 g/dL (3.5-5.0); BILIRUBIN,DIRECT 0.3 mg/dL (0.0-0.3); TOTAL PROTEIN, SERUM 7.3 g/dL (6.0-8.3)
[2020-07-10 17:14] LABS: BASOPHILS % (AUTO) 0.5 % (0.0-5.0); EOSINOPHILS % (AUTO) 4.3 % (0.0-8.0); LYMPHOCYTES % (AUTO) 18.8 % (21.0-51.0); MEAN CORPUSCULAR HEMOGLOBIN 29.4 pg (27.0-33.0); MEAN CORPUSCULAR HGB CONC 32.3 g/dL (32.0-36.0); MONOCYTES % (AUTO) 9.3 % (3.0-13.0); NEUTROPHILS % (AUTO) 66.1 % (40.0-77.0); PLATELET COUNT (AUTO) 97 K/uL (130-400); RED BLOOD CELL COUNT(AUTO) 2.21 MIL/uL (4.50-6.20); RED CELL DISTRIBUTION WIDTH 17.3 % (11.0-15.5)
[2020-07-10 17:23] LABS: HEMATOCRIT 20.1 % (42-54)
[2020-07-11 05:33] LABS: CREATININE 1.9 mg/dL (0.5-1.5); POTASSIUM 3.8 mmol/L (3.5-5.1)
[2020-07-11 06:11] LABS: BASOPHILS % (AUTO) 0.7 % (0.0-5.0); EOSINOPHILS % (AUTO) 6.3 % (0.0-8.0); MEAN CORPUSCULAR HEMOGLOBIN 29.1 pg (27.0-33.0); MEAN CORPUSCULAR HGB CONC 32.4 g/dL (32.0-36.0); MEAN CORPUSCULAR VOLUME 89.8 fL (79-99); MONOCYTES % (AUTO) 11.9 % (3.0-13.0); PLATELET COUNT (AUTO) 74 K/uL (130-400); RED BLOOD CELL COUNT(AUTO) 2.06 MIL/uL (4.50-6.20); RED CELL DISTRIBUTION WIDTH 16.9 % (11.0-15.5); WHITE BLOOD COUNT (AUTO) 2.7 K/uL (4.8-10.8)
[2020-07-11 06:17] LABS: HEMATOCRIT 18.5 % (42-54)
[2020-07-11 06:48] LABS: BAND NEUTROPHILS % (MANUAL) 5 % (0-2); EOSINOPHILS % (MANUAL) 6 % (1-6); LYMPHOCYTES % (MANUAL) 25 % (22-44); MAN.DIFF COMMENT-IMPRESSION MANUAL DIFFERENTIAL; MONOCYTES % (MANUAL) 4 % (2-9); PLATELET MORPHOLOGY COMMENT DECREASED; SEGMENTED NEUTROPHILS % 60 % (40-70)
[2020-07-11 09:41] LABS: HEMATOCRIT 19.1 % (42-54)
[2020-07-11 09:46] LABS: INR 1.21 (0.85-1.15)
[2020-07-11 09:48] LABS: PARTIAL THROMBOPLASTIN TIME 28.9 SEC (26.3-35.5)
[2020-07-11] MEDS ORDERED: 0.9% NACL 250ML 250 ML IV ONE (10:41)
[2020-07-11 16:10] LABS: BASOPHILS % (AUTO) 0.4 % (0.0-5.0); EOSINOPHILS % (AUTO) 4.3 % (0.0-8.0); HEMATOCRIT 21.1 % (42-54); LYMPHOCYTES % (AUTO) 18.2 % (21.0-51.0); MEAN CORPUSCULAR HEMOGLOBIN 30.6 pg (27.0-33.0); MEAN CORPUSCULAR HGB CONC 34.1 g/dL (32.0-36.0); MEAN CORPUSCULAR VOLUME 89.8 fL (79-99); MONOCYTES % (AUTO) 11.4 % (3.0-13.0); PLATELET COUNT (AUTO) 69 K/uL (130-400); RED BLOOD CELL COUNT(AUTO) 2.35 MIL/uL (4.50-6.20); RED CELL DISTRIBUTION WIDTH 16.8 % (11.0-15.5); WHITE BLOOD COUNT (AUTO) 2.8 K/uL (4.8-10.8)
[2020-07-11 22:31] VITALS: BP 151/66
[2020-07-12] VITALS (20 sets, daily range): BP systolic 93–172; BP diastolic 36–95
[2020-07-12 06:10] LABS: BASOPHILS % (AUTO) 0.6 % (0.0-5.0); EOSINOPHILS % (AUTO) 2.6 % (0.0-8.0); LYMPHOCYTES % (AUTO) 10.9 % (21.0-51.0); MEAN CORPUSCULAR HEMOGLOBIN 29.7 pg (27.0-33.0); MEAN CORPUSCULAR HGB CONC 32.9 g/dL (32.0-36.0); MEAN CORPUSCULAR VOLUME 90.4 fL (79-99); MONOCYTES % (AUTO) 8.6 % (3.0-13.0); NEUTROPHILS % (AUTO) 76.4 % (40.0-77.0); PLATELET COUNT (AUTO) 81 K/uL (130-400); RED BLOOD CELL COUNT(AUTO) 2.29 MIL/uL (4.50-6.20); RED CELL DISTRIBUTION WIDTH 16.8 % (11.0-15.5); WHITE BLOOD COUNT (AUTO) 3.5 K/uL (4.8-10.8)
[2020-07-12 06:16] LABS: ALBUMIN 2.6 g/dL (3.5-5.0); BILIRUBIN,TOTAL 1.8 mg/dL (0.2-1.0); CREATININE 1.7 mg/dL (0.5-1.5); POTASSIUM 3.9 mmol/L (3.5-5.1); TOTAL PROTEIN, SERUM 6.1 g/dL (6.0-8.3)
[2020-07-12 06:18] LABS: HEMATOCRIT 20.7 % (42-54)
[2020-07-12] MEDS ORDERED: 0.9% NACL 250ML 250 ML IV ONE (07:58)
[2020-07-12] MEDS: CEFTRIAXONE 1G VIAL IVP SCH (10:21)
[2020-07-12] MEDS ORDERED: PRAV20TA4 PO (11:13)
[2020-07-12 12:48] LABS: HEMATOCRIT 22.7 % (42-54)
[2020-07-12] MEDS ORDERED: PROPOFOL 10 MG/ML 20ML VIAL IV ONE (14:40)
[2020-07-12] MEDS ORDERED: GLYCOPYRROLATE 1 MG/5 ML SYRINGE ONE (14:41)
[2020-07-12] MEDS ORDERED: LIDOCAINE HCL 1% 20 ML VIAL ONE (15:25)
[2020-07-13 04:20] VITALS: BP 113/47
[2020-07-13 05:06] LABS: BASOPHILS % (AUTO) 0.7 % (0.0-5.0); EOSINOPHILS % (AUTO) 4.3 % (0.0-8.0); HEMATOCRIT 22.3 % (42-54); LYMPHOCYTES % (AUTO) 20.3 % (21.0-51.0); MEAN CORPUSCULAR HEMOGLOBIN 29.4 pg (27.0-33.0); MEAN CORPUSCULAR HGB CONC 32.7 g/dL (32.0-36.0); MEAN CORPUSCULAR VOLUME 89.9 fL (79-99); MONOCYTES % (AUTO) 9.8 % (3.0-13.0); NEUTROPHILS % (AUTO) 63.8 % (40.0-77.0); PLATELET COUNT (AUTO) 70 K/uL (130-400); RED BLOOD CELL COUNT(AUTO) 2.48 MIL/uL (4.50-6.20); RED CELL DISTRIBUTION WIDTH 17.1 % (11.0-15.5); WHITE BLOOD COUNT (AUTO) 2.8 K/uL (4.8-10.8)
[2020-07-13 05:24] LABS: ALBUMIN 2.6 g/dL (3.5-5.0); BILIRUBIN,TOTAL 1.7 mg/dL (0.2-1.0); CREATININE 1.6 mg/dL (0.5-1.5); POTASSIUM 3.9 mmol/L (3.5-5.1); TOTAL PROTEIN, SERUM 6.1 g/dL (6.0-8.3)
[2020-07-13] MEDS: PANTOPRAZOLE 40 MG TAB DR PO SCH (08:09)
[2020-07-13] MEDS: CEFTRIAXONE 1G VIAL IVP SCH (08:09)
[2020-07-13 08:13] VITALS: BP 135/64
[2020-07-13 09:26] LABS: % IRON SATURATION 35.5 % (30-44)
[2020-07-13 11:21] VITALS: BP 120/56
[2020-07-13] MEDS: FOLIC ACID 1 MG TABLET PO SCH (13:11)
[2020-07-13] MEDS: CYANOCOBALAMIN (VITAMIN B-12) 1,000 MCG TABLET PO SCH (13:11)
[2020-07-13 16:29] VITALS: BP 139/57
[2020-07-13 20:11] VITALS: BP 120/46
[2020-07-13 23:31] VITALS: BP 131/52
[2020-07-14 04:09] VITALS: BP 129/61
[2020-07-14 05:28] LABS: BASOPHILS % (AUTO) 0.9 % (0.0-5.0); EOSINOPHILS % (AUTO) 7.2 % (0.0-8.0); HEMATOCRIT 21.7 % (42-54); LYMPHOCYTES % (AUTO) 22.1 % (21.0-51.0); MEAN CORPUSCULAR HEMOGLOBIN 30.2 pg (27.0-33.0); MEAN CORPUSCULAR HGB CONC 33.6 g/dL (32.0-36.0); MEAN CORPUSCULAR VOLUME 89.7 fL (79-99); MONOCYTES % (AUTO) 12.8 % (3.0-13.0); NEUTROPHILS % (AUTO) 56.6 % (40.0-77.0); PLATELET COUNT (AUTO) 65 K/uL (130-400); RED BLOOD CELL COUNT(AUTO) 2.42 MIL/uL (4.50-6.20); RED CELL DISTRIBUTION WIDTH 16.7 % (11.0-15.5); WHITE BLOOD COUNT (AUTO) 2.4 K/uL (4.8-10.8)
[2020-07-14 06:10] LABS: ALBUMIN 2.6 g/dL (3.5-5.0); BILIRUBIN,TOTAL 0.7 mg/dL (0.2-1.0); CREATININE 1.7 mg/dL (0.5-1.5); POTASSIUM 3.7 mmol/L (3.5-5.1)
[2020-07-14 07:30] VITALS: BP 129/55
[2020-07-14] MEDS: CEFTRIAXONE 1G VIAL IVP SCH (08:37)
[2020-07-14] MEDS: CYANOCOBALAMIN (VITAMIN B-12) 1,000 MCG TABLET PO SCH (08:37)
[2020-07-14] MEDS: PANTOPRAZOLE 40 MG TAB DR PO SCH (08:37)
[2020-07-14] MEDS: FOLIC ACID 1 MG TABLET PO SCH (08:37)
== END 2020-07-14 10:35 | disposition home or self-care (01) | DRG 812 ==
LOC: EDH 15:18 → EDHIP 15:19 → OBSVTOIN 15:19 → EDHIP 07-11 10:46 → 3CH 07-11 22:28
PROVIDERS: ADMIT Internal Medicine; ATTEND Internal Medicine
PROC: 30233N1 Transfusion of Nonautologous Red Blood Cells into Peripheral Vein, Percutaneous Approach (ICD-10-PCS; principal; 2020-07-12)
PROC: 0DJ08ZZ Inspection of Upper Intestinal Tract, Via Natural or Artificial Opening Endoscopic (ICD-10-PCS; 2020-07-12)
DX: D62 Acute posthemorrhagic anemia (principal); K76.6 Portal hypertension; R18.8 Other ascites; K29.00 Acute gastritis without bleeding; D61.818 Other pancytopenia; E11.22 Type 2 diabetes mellitus with diabetic chronic kidney disease; N18.9 Chronic kidney disease, unspecified; I12.9 Hypertensive chronic kidney disease with stage 1 through stage 4 chronic kidney disease, or unspecified chronic kidney disease; E78.5 Hyperlipidemia, unspecified; M25.572 Pain in left ankle and joints of left foot; K74.60 Unspecified cirrhosis of liver; D73.1 Hypersplenism; K31.89 Other diseases of stomach and duodenum; R53.81 Other malaise; Z20.822 Contact with and (suspected) exposure to COVID-19
CPT/HCPCS: 36415; 36430; 43235; 73610; 73721; 76700; 80048; 80053; 82140; 82150; 82248; 82948; 83540; 83550; 83690; 85014; 85018; 85025; 85610; 85730; 86850; 86900; 86901; 86923; 87426; A4606; G0378; J0696; J2704; J3490; J7030; J7050; P9016; U0003

== ENCOUNTER → 2020-07-27 | Outpatient (CLI) | payer OTHER ==
[~2020-07-27] MED LIST changes: +OMEP40CA13 PO; -OMEP40CA21 PO; +PRAV20TA4 PO
== END | disposition home or self-care (01) ==
LOC: RAH 07-19 07:28
PROVIDERS: ATTEND Internal Medicine Gastroenterology
DX: K74.60 Unspecified cirrhosis of liver (principal); R16.1 Splenomegaly, not elsewhere classified
CPT/HCPCS: 76700; 93975

== ENCOUNTER → 2020-08-07 | Outpatient (CLI) | payer OTHER | END | disposition home or self-care (01) | LOC: SHCH 15:04 | PROVIDERS: ATTEND Internal Medicine Cardiovascular Disease | DX: Z09 Encounter for follow-up examination after completed treatment for conditions other than malignant neoplasm (principal); I87.2 Venous insufficiency (chronic) (peripheral) | CPT/HCPCS: 93971 ==

== ENCOUNTER 2020-09-13 09:41 | Inpatient (IN) | payer OTHER ==
[~2020-09-13] VITALS: Ht 162.6 cm; Wt 103.4 kg
[~2020-09-13 09:41] MED LIST changes: -OMEP40CA13 PO; +OMEP40CA21 PO
[2020-09-13] MEDS ORDERED: 0.9%NACL 10ML VIAL IVP PRN (10:00)
[2020-09-13] MEDS ORDERED: 0.9%NACL 50ML 50 ML IV SCH (10:15)
[2020-09-13] MEDS ORDERED: 0.9% NACL 250ML 250 ML IV SCH ×2 (10:15)
[2020-09-13] MEDS ORDERED: VANCOMYCIN 1G VIAL IV SCH (10:15)
[2020-09-13 10:38] VITALS: BP 145/70
[2020-09-13 10:40] LABS: BASOPHILS % (AUTO) 0.7 % (0.0-5.0); EOSINOPHILS % (AUTO) 3.7 % (0.0-8.0); HEMATOCRIT 26.4 % (42-54); LYMPHOCYTES % (AUTO) 18.4 % (21.0-51.0); MEAN CORPUSCULAR HEMOGLOBIN 31.7 pg (27.0-33.0); MEAN CORPUSCULAR HGB CONC 33.7 g/dL (32.0-36.0); NEUTROPHILS % (AUTO) 70.8 % (40.0-77.0); PLATELET COUNT (AUTO) 51 K/uL (130-400); RED BLOOD CELL COUNT(AUTO) 2.81 MIL/uL (4.50-6.20); RED CELL DISTRIBUTION WIDTH 13.4 % (11.0-15.5); WHITE BLOOD COUNT (AUTO) 2.7 K/uL (4.8-10.8)
[2020-09-13 10:49] LABS: CREATININE 2.3 mg/dL (0.5-1.5); POTASSIUM 4.7 mmol/L (3.5-5.1)
[2020-09-13 10:54] LABS: ALBUMIN 2.7 g/dL (3.5-5.0); BILIRUBIN,DIRECT 0.3 mg/dL (0.0-0.3)
[2020-09-13 10:58] LABS: INR 1.04 (0.85-1.15); PROTHROMBIN TIME 11.3 SEC (9.6-11.6)
[2020-09-13 11:44] LABS: BAND NEUTROPHILS % (MANUAL) 2 % (0-2); EOSINOPHILS % (MANUAL) 5 % (1-6); LYMPHOCYTES % (MANUAL) 19 % (22-44); MAN.DIFF COMMENT-IMPRESSION MANUAL DIFFERENTIAL; MONOCYTES % (MANUAL) 3 % (2-9); SEGMENTED NEUTROPHILS % 71 % (40-70)
[2020-09-13 11:45] LABS: PLATELET MORPHOLOGY COMMENT DECREASED
[2020-09-13 11:59] VITALS: BP 145/70
[2020-09-13] MEDS ORDERED: ALBUTEROL 0.083% 2.5 MG/3 ML INH IH PRN (13:00)
[2020-09-13] MEDS ORDERED: DIPHENHYDRAMINE HCL 25 MG CAPSULE PO PRN (13:00)
[2020-09-13] MEDS ORDERED: ONDANSETRON 4MG INJ IVP PRN (13:00)
[2020-09-13] MEDS ORDERED: DEXTROSE 50%-WATER 50 ML DISP.SYRIN IV PRN (13:00)
[2020-09-13] MEDS ORDERED: IPRATROPIUM/ALBUTEROL SULFATE 3 ML SOLUTION IH PRN ×2 (13:00)
[2020-09-13] MEDS ORDERED: ACETAMINOPHEN 325 MG TAB PO PRN (13:00)
[2020-09-13] MEDS ORDERED: LACTULOSE 20 GM/30 ML UDCUP PO PRN (13:00)
[2020-09-13] MEDS ORDERED: GUAIFENESIN-DM 200/20 MG 10 ML PO PRN (13:00)
[2020-09-13] MEDS ORDERED: GLUCAGON 1MG KIT 1 MG ML IM PRN (13:00)
[2020-09-13] MEDS ORDERED: 0.9%NACL 100ML 100 ML ONE (13:23)
[2020-09-13] MEDS ORDERED: PIP/TAZ ZOSYN 3.375G 3.375 GM VIAL IVPB SCH (14:00)
[2020-09-13] MEDS: ZOSYN 3.375 IV SCH ×2 (14:35→23:30)
[2020-09-13 16:18] VITALS: BP 158/79
[2020-09-13] MEDS ORDERED: INSULIN R PO SSI SQ SCH (16:30)
[2020-09-13 20:00] VITALS: BP 170/68
[2020-09-13 21:00] VITALS: BP 169/74
[2020-09-13] MEDS ORDERED: VANCOMYCIN 1G VIAL IVPB SCH (21:00)
[2020-09-13] MEDS: INSULIN LISPRO 100 UNIT/ML 3ML SQ SCH (21:00)
[2020-09-13] MEDS ORDERED: ZOSYN 3.375GM+NS 50ML 50 ML IV ONE (23:22)
[2020-09-13] MEDS ORDERED: FUROSEMIDE 40 MG TABLET ONE (23:22)
[2020-09-13] MEDS ORDERED: VANCOMYCIN 1G/250ML KIT 250 ML IV ONE (23:23)
[2020-09-13] MEDS: VANCOMYCIN 1G VIAL IV SCH (23:30)
[2020-09-13] MEDS: FUROSEMIDE 80 MG TABLET PO SCH (23:30)
[2020-09-14] VITALS (7 sets, daily range): BP systolic 117–185; BP diastolic 65–82
[2020-09-14 05:33] LABS: BASOPHILS % (AUTO) 0.7 % (0.0-5.0); EOSINOPHILS % (AUTO) 4.4 % (0.0-8.0); HEMATOCRIT 25.7 % (42-54); LYMPHOCYTES % (AUTO) 20.5 % (21.0-51.0); MEAN CORPUSCULAR HEMOGLOBIN 30.6 pg (27.0-33.0); MEAN CORPUSCULAR HGB CONC 33.1 g/dL (32.0-36.0); MEAN CORPUSCULAR VOLUME 92.4 fL (79-99); MONOCYTES % (AUTO) 5.7 % (3.0-13.0); NEUTROPHILS % (AUTO) 68.4 % (40.0-77.0); PLATELET COUNT (AUTO) 54 K/uL (130-400); RED BLOOD CELL COUNT(AUTO) 2.78 MIL/uL (4.50-6.20); RED CELL DISTRIBUTION WIDTH 13.3 % (11.0-15.5)
[2020-09-14 05:49] LABS: ALBUMIN 2.6 g/dL (3.5-5.0); BILIRUBIN,TOTAL 1.4 mg/dL (0.2-1.0); CREATININE 2.2 mg/dL (0.5-1.5); TOTAL PROTEIN, SERUM 6.8 g/dL (6.0-8.3)
[2020-09-14] MEDS: ZOSYN 3.375 IV SCH (06:00)
[2020-09-14] MEDS ORDERED: CYAN25002 SL (07:00)
[2020-09-14] MEDS ORDERED: KETO5DRO39 OD (07:00)
[2020-09-14] MEDS ORDERED: iron PO (07:00)
[2020-09-14] MEDS ORDERED: LINE600T14 PO (07:00)
[2020-09-14] MEDS: INSULIN LISPRO 100 UNIT/ML 3ML SQ SCH ×2 (09:00→21:00)
[2020-09-14] MEDS: FUROSEMIDE 80 MG TABLET PO SCH ×2 (09:59→21:30)
[2020-09-14] MEDS: VANCOMYCIN 1G VIAL IV SCH ×2 (10:00→21:32)
[2020-09-14] MEDS: SPIRONOLACTONE 25 MG TAB PO SCH (10:00)
[2020-09-14] MEDS: METOLAZONE 2.5 MG TABLET PO SCH (10:00)
[2020-09-14] MEDS: CYANOCOBALAMIN (VITAMIN B-12) 1000 MCG/ML 1ML VIAL IM SCH (10:01)
[2020-09-15 04:00] VITALS: BP 131/63
[2020-09-15 08:07] VITALS: BP 139/69
[2020-09-15] MEDS: INSULIN LISPRO 100 UNIT/ML 3ML SQ SCH ×2 (09:00→18:33)
[2020-09-15] MEDS: CYANOCOBALAMIN (VITAMIN B-12) 1000 MCG/ML 1ML VIAL IM SCH (10:53)
[2020-09-15] MEDS: SPIRONOLACTONE 25 MG TAB PO SCH (10:53)
[2020-09-15] MEDS: FUROSEMIDE 80 MG TABLET PO SCH ×2 (10:57→20:13)
[2020-09-15] MEDS: METOLAZONE 2.5 MG TABLET PO SCH (10:58)
[2020-09-15] MEDS: VANCOMYCIN 1G VIAL IV SCH (11:08)
[2020-09-15 11:29] VITALS: BP 143/65
[2020-09-15 16:00] VITALS: BP 168/73
[2020-09-15 19:53] VITALS: BP 148/70
[2020-09-15] MEDS ORDERED: COMPOUND IV REFRIGERATED 1 EACH IVSOLN MISC PRN (21:00)
[2020-09-15 23:26] VITALS: BP 119/57
[2020-09-16 03:38] VITALS: BP 127/60
[2020-09-16 07:41] VITALS: BP 149/70
[2020-09-16] MEDS: INSULIN LISPRO 100 UNIT/ML 3ML SQ SCH ×2 (09:00→20:30)
[2020-09-16] MEDS: VANCOMYCIN 1G 1.5 GM in 0.9% NACL 250ML 250 ML IV SCH (09:41)
[2020-09-16] MEDS: METOLAZONE 2.5 MG TABLET PO SCH (09:42)
[2020-09-16] MEDS: SPIRONOLACTONE 25 MG TAB PO SCH (09:42)
[2020-09-16] MEDS: CYANOCOBALAMIN (VITAMIN B-12) 1000 MCG/ML 1ML VIAL IM SCH (09:43)
[2020-09-16] MEDS: FUROSEMIDE 80 MG TABLET PO SCH ×2 (09:43→19:36)
[2020-09-16 11:48] VITALS: BP 145/70
[2020-09-16 16:17] VITALS: BP 134/57
[2020-09-16 19:57] VITALS: BP 143/63
[2020-09-16 23:34] VITALS: BP 131/59
[2020-09-17] VITALS (7 sets, daily range): BP systolic 129–171; BP diastolic 47–71
[2020-09-17] MEDS: CYANOCOBALAMIN (VITAMIN B-12) 1000 MCG/ML 1ML VIAL IM SCH (09:00)
[2020-09-17] MEDS: INSULIN LISPRO 100 UNIT/ML 3ML SQ SCH ×2 (09:00→17:00)
[2020-09-17] MEDS: VANCOMYCIN 1G 1.5 GM in 0.9% NACL 250ML 250 ML IV SCH (11:15)
[2020-09-17] MEDS: FUROSEMIDE 80 MG TABLET PO SCH ×2 (11:16→19:55)
[2020-09-17] MEDS: SPIRONOLACTONE 25 MG TAB PO SCH (11:16)
[2020-09-17] MEDS: METOLAZONE 2.5 MG TABLET PO SCH (11:16)
[2020-09-17 11:46] LABS: HEMATOCRIT 24.1 % (42-54); MEAN CORPUSCULAR HEMOGLOBIN 31.7 pg (27.0-33.0); MEAN CORPUSCULAR HGB CONC 35.7 g/dL (32.0-36.0); MEAN CORPUSCULAR VOLUME 88.9 fL (79-99); PLATELET COUNT (AUTO) 39 K/uL (130-400); RED BLOOD CELL COUNT(AUTO) 2.71 MIL/uL (4.50-6.20); RED CELL DISTRIBUTION WIDTH 13.1 % (11.0-15.5); WHITE BLOOD COUNT (AUTO) 2.8 K/uL (4.8-10.8)
[2020-09-17 12:14] LABS: LYMPHOCYTES % (MANUAL) 36 % (22-44); MONOCYTES % (MANUAL) 8 % (2-9); SEGMENTED NEUTROPHILS % 56 % (40-70)
[2020-09-17 12:15] LABS: PLATELET MORPHOLOGY COMMENT MARKED DECREASE
[2020-09-17 12:17] LABS: POTASSIUM 3.7 mmol/L (3.5-5.1)
[2020-09-18 04:15] VITALS: BP 125/67
[2020-09-18 04:58] LABS: BASOPHILS % (AUTO) 0.8 % (0.0-5.0); EOSINOPHILS % (AUTO) 3.3 % (0.0-8.0); HEMATOCRIT 22.9 % (42-54); LYMPHOCYTES % (AUTO) 25.8 % (21.0-51.0); MEAN CORPUSCULAR HEMOGLOBIN 30.7 pg (27.0-33.0); MEAN CORPUSCULAR HGB CONC 34.5 g/dL (32.0-36.0); MEAN CORPUSCULAR VOLUME 89.1 fL (79-99); MONOCYTES % (AUTO) 16.4 % (3.0-13.0); NEUTROPHILS % (AUTO) 52.9 % (40.0-77.0); PLATELET COUNT (AUTO) 36 K/uL (130-400); RED BLOOD CELL COUNT(AUTO) 2.57 MIL/uL (4.50-6.20); WHITE BLOOD COUNT (AUTO) 2.4 K/uL (4.8-10.8)
[2020-09-18 05:19] LABS: CREATININE 2.2 mg/dL (0.5-1.5); POTASSIUM 3.6 mmol/L (3.5-5.1)
[2020-09-18 07:41] VITALS: BP 160/58
[2020-09-18] MEDS: INSULIN LISPRO 100 UNIT/ML 3ML SQ SCH (09:00)
[2020-09-18] MEDS: VANCOMYCIN 1G 1.5 GM in 0.9% NACL 250ML 250 ML IV SCH (09:30)
[2020-09-18] MEDS: FUROSEMIDE 80 MG TABLET PO SCH (09:33)
[2020-09-18] MEDS: SPIRONOLACTONE 25 MG TAB PO SCH (09:33)
[2020-09-18] MEDS: METOLAZONE 2.5 MG TABLET PO SCH (09:34)
[2020-09-18] MEDS: CYANOCOBALAMIN (VITAMIN B-12) 1000 MCG/ML 1ML VIAL IM SCH (09:41)
[2020-09-18 10:52] VITALS: BP 159/67
== END 2020-09-18 13:45 | disposition home or self-care (01) | DRG 603 ==
LOC: EDH 09:41 → OBSVTOIN 09:42 → EDHIP 09:42 → 3BH 09-14 00:22
PROVIDERS: ADMIT Internal Medicine; ATTEND Internal Medicine
PROC: 05HD33Z Insertion of Infusion Device into Right Cephalic Vein, Percutaneous Approach (ICD-10-PCS; principal; 2020-09-13)
DX: L03.116 Cellulitis of left lower limb (principal); D61.818 Other pancytopenia; E11.9 Type 2 diabetes mellitus without complications; E78.5 Hyperlipidemia, unspecified; I10 Essential (primary) hypertension; D73.1 Hypersplenism; K74.60 Unspecified cirrhosis of liver
CPT/HCPCS: 36415; 71045; 80048; 80053; 80076; 80202; 82140; 82948; 85025; 85610; 94664; 96365; 96367; 96372; 96376; C1894; G0378; J2543; J3370; J3420; J7050

== ENCOUNTER → 2020-10-16 | Outpatient (CLI) | payer OTHER ==
[~2020-10-16] MED LIST changes: +CYAN25002 SL; +KETO5DRO39 OD; +LINE600T14 PO; -OMEP40CA21 PO; -SPIR50TA5 PO; +iron PO
== END | disposition home or self-care (01) ==
LOC: SHCH 13:40
PROVIDERS: ATTEND Internal Medicine Cardiovascular Disease
DX: Z09 Encounter for follow-up examination after completed treatment for conditions other than malignant neoplasm (principal); I87.2 Venous insufficiency (chronic) (peripheral)
CPT/HCPCS: 93971

== ENCOUNTER → 2020-11-23 | Outpatient (CLI) | payer OTHER ==
[~2020-11-23] MED LIST changes: +LIDOCAINE HCL 4% LTA SOL 4 ML VIAL TP ONE
== END | disposition home or self-care (01) ==
LOC: WHH 08:04
PROVIDERS: ATTEND Family Medicine
DX: S80.822A Blister (nonthermal), left lower leg, initial encounter (principal); E11.22 Type 2 diabetes mellitus with diabetic chronic kidney disease; I12.0 Hypertensive chronic kidney disease with stage 5 chronic kidney disease or end stage renal disease; N18.9 Chronic kidney disease, unspecified; I50.9 Heart failure, unspecified; I89.0 Lymphedema, not elsewhere classified; I87.2 Venous insufficiency (chronic) (peripheral); E78.5 Hyperlipidemia, unspecified; K74.60 Unspecified cirrhosis of liver; E66.9 Obesity, unspecified; Z68.41 Body mass index [BMI] 40.0-44.9, adult; X58.XXXA Exposure to other specified factors, initial encounter; Y93.89 Activity, other specified; Y92.89 Other specified places as the place of occurrence of the external cause; Y99.8 Other external cause status
CPT/HCPCS: 97597; 97598; A4450; A6021; A6197; A6456

== ENCOUNTER → 2020-11-27 | Outpatient (CLI) | payer OTHER ==
[~2020-11-27] MED LIST changes: -LIDOCAINE HCL 4% LTA SOL 4 ML VIAL TP ONE
== END | disposition home or self-care (01) ==
LOC: WHH 10:45
PROVIDERS: ATTEND Family Medicine
DX: S80.822D Blister (nonthermal), left lower leg, subsequent encounter (principal); E11.22 Type 2 diabetes mellitus with diabetic chronic kidney disease; I12.0 Hypertensive chronic kidney disease with stage 5 chronic kidney disease or end stage renal disease; N18.9 Chronic kidney disease, unspecified; I50.9 Heart failure, unspecified; I89.0 Lymphedema, not elsewhere classified; I87.2 Venous insufficiency (chronic) (peripheral); E78.5 Hyperlipidemia, unspecified; K74.60 Unspecified cirrhosis of liver; E66.9 Obesity, unspecified; Z68.41 Body mass index [BMI] 40.0-44.9, adult; X58.XXXD Exposure to other specified factors, subsequent encounter
CPT/HCPCS: 29580; A6021; A6197; A6456; G0463

== ENCOUNTER → 2020-11-30 | Outpatient (CLI) | payer OTHER ==
[~2020-11-30] MED LIST changes: +LIDOCAINE HCL 4% LTA SOL 4 ML VIAL TP ONE
== END | disposition home or self-care (01) ==
LOC: WHH 08:52
PROVIDERS: ATTEND Family Medicine
DX: S80.822D Blister (nonthermal), left lower leg, subsequent encounter (principal); E11.22 Type 2 diabetes mellitus with diabetic chronic kidney disease; I12.0 Hypertensive chronic kidney disease with stage 5 chronic kidney disease or end stage renal disease; N18.9 Chronic kidney disease, unspecified; I50.9 Heart failure, unspecified; I89.0 Lymphedema, not elsewhere classified; I87.2 Venous insufficiency (chronic) (peripheral); E78.5 Hyperlipidemia, unspecified; K74.60 Unspecified cirrhosis of liver; E66.9 Obesity, unspecified; Z68.41 Body mass index [BMI] 40.0-44.9, adult; X58.XXXD Exposure to other specified factors, subsequent encounter
CPT/HCPCS: 11042; 11045; A6021; A6197; A6456

== ENCOUNTER → 2020-12-04 | Outpatient (CLI) | payer OTHER ==
[~2020-12-04] MED LIST changes: -LIDOCAINE HCL 4% LTA SOL 4 ML VIAL TP ONE
== END | disposition home or self-care (01) ==
LOC: WHH 10:48
PROVIDERS: ATTEND Family Medicine
DX: S80.822D Blister (nonthermal), left lower leg, subsequent encounter (principal); E11.628 Type 2 diabetes mellitus with other skin complications; R60.0 Localized edema; E11.22 Type 2 diabetes mellitus with diabetic chronic kidney disease; I13.0 Hypertensive heart and chronic kidney disease with heart failure and stage 1 through stage 4 chronic kidney disease, or unspecified chronic kidney disease; N18.9 Chronic kidney disease, unspecified; I50.9 Heart failure, unspecified; I89.0 Lymphedema, not elsewhere classified; I87.2 Venous insufficiency (chronic) (peripheral); E78.5 Hyperlipidemia, unspecified; K74.60 Unspecified cirrhosis of liver; E66.9 Obesity, unspecified; Z68.41 Body mass index [BMI] 40.0-44.9, adult; X58.XXXD Exposure to other specified factors, subsequent encounter
CPT/HCPCS: 29580; A6021; A6197; A6456; G0463

== ENCOUNTER 2021-08-15 12:30 | Observation (INO) | payer OTHER ==
[~2021-08-15] VITALS: Ht 162.6 cm; Wt 97.4 kg
[~2021-08-15 12:30] MED LIST changes: +CEFU500T67 PO; +CLON1PAT13 TD; +FERR-82 PO; +FERR159T2 PO; +GABA-529 PO; -INSU100V37 SQ; +INSU200I4 SQ; -KETO5DRO39 OD; -LINE600T14 PO; +SPIR50TA5 PO; -iron PO
[2021-08-15] MEDS ORDERED: ACETAMINOPHEN 325 MG TAB PO ONE (13:00)
[2021-08-15] MEDS ORDERED: ONDANSETRON 4MG INJ IVP ONE (13:00)
[2021-08-15] MEDS ORDERED: 0.9%NACL 1000ML 1,000 ML IV ONE (13:00)
[2021-08-15 13:11] LABS: BASOPHILS % (AUTO) 0.5 % (0.0-5.0); EOSINOPHILS % (AUTO) 1.1 % (0.0-8.0); HEMATOCRIT 32.1 % (42-54); MEAN CORPUSCULAR HEMOGLOBIN 31.8 pg (27.0-33.0); MEAN CORPUSCULAR HGB CONC 34.6 g/dL (32.0-36.0); MONOCYTES % (AUTO) 1.6 % (3.0-13.0); NEUTROPHILS % (AUTO) 87.3 % (40.0-77.0); PLATELET COUNT (AUTO) 66 K/uL (130-400); RED BLOOD CELL COUNT(AUTO) 3.49 MIL/uL (4.50-6.20); RED CELL DISTRIBUTION WIDTH 12.9 % (11.0-15.5); WHITE BLOOD COUNT (AUTO) 1.9 K/uL (4.8-10.8)
[2021-08-15 13:18] LABS: CREATININE 3.1 mg/dL (0.5-1.5); POTASSIUM 4.6 mmol/L (3.5-5.1)
[2021-08-15 13:23] LABS: ALBUMIN 3.4 g/dL (3.5-5.0); BILIRUBIN,TOTAL 1.7 mg/dL (0.2-1.0); TOTAL PROTEIN, SERUM 8.5 g/dL (6.0-8.3)
[2021-08-15 13:39] LABS: APPEARANCE,URINE Clear (CLEAR); BILIRUBIN,URINE Negative (NEGATIVE); COLOR,URINE Yellow (YELLOW); GLUCOSE, URINE (UA) TRACE mg/dL (NEGATIVE); KETONES,URINE Negative (NEGATIVE); LEUKOCYTE ESTERASE ,URINE Negative (NEGATIVE); NITRATE,URINE Negative (NEGATIVE); OCCULT BLOOD,URINE Trace (NEGATIVE); PROTEIN,URINE POS 1+ mg/dL (NEGATIVE); UROBILINOGEN,URINE 0.2 mg/dL (0.2-1.0)
[2021-08-15 13:49] LABS: PLATELET MORPHOLOGY COMMENT DECREASED
[2021-08-15] MEDS ORDERED: CEFTRIAXONE 2GM VIAL IVP ONE (14:00)
[2021-08-15 14:06] LABS: BACTERIA,URINE Rare /HPF (None Seen); RBC,URINE 0-1 /HPF (0-1); SQUAMOUS EPITHELIAL CELL,UR Rare /HPF (0-2); WBC,URINE 0-1 /HPF (0-1)
[2021-08-15] MEDS ORDERED: DEXTROSE 5 %-0.45 % NACL 1,000 ML IV SCH (15:00)
[2021-08-15] MEDS ORDERED: INSU200I SQ (16:12)
[2021-08-15] MEDS: PROPRANOLOL HCL 10 MG TAB PO SCH (21:00)
[2021-08-15] MEDS: SUCRALFATE 1 GM TABLET PO SCH (21:28)
[2021-08-15] MEDS: LACTULOSE 20 GM/30 ML UDCUP PO SCH (21:29)
[2021-08-15] MEDS: SPIRONOLACTONE 25 MG TAB PO SCH (21:29)
[2021-08-15] MEDS: ATORVASTATIN 10 MG TABLET PO SCH (21:35)
[2021-08-15 22:45] VITALS: BP 116/59
[2021-08-16 04:00] VITALS: BP 107/55
[2021-08-16 06:05] LABS: BASOPHILS % (AUTO) 0.2 % (0.0-5.0); EOSINOPHILS % (AUTO) 0.4 % (0.0-8.0); HEMATOCRIT 27.8 % (42-54); MEAN CORPUSCULAR HGB CONC 34.5 g/dL (32.0-36.0); MEAN CORPUSCULAR VOLUME 92.7 fL (79-99); MONOCYTES % (AUTO) 9.1 % (3.0-13.0); NEUTROPHILS % (AUTO) 78.5 % (40.0-77.0); PLATELET COUNT (AUTO) 47 K/uL (130-400); RED CELL DISTRIBUTION WIDTH 12.8 % (11.0-15.5); WHITE BLOOD COUNT (AUTO) 4.7 K/uL (4.8-10.8)
[2021-08-16 06:26] LABS: ALBUMIN 2.6 g/dL (3.5-5.0); CREATININE 3.7 mg/dL (0.5-1.5); POTASSIUM 4.4 mmol/L (3.5-5.1); TOTAL PROTEIN, SERUM 6.9 g/dL (6.0-8.3)
[2021-08-16 06:56] VITALS: BP 109/50
[2021-08-16] MEDS ORDERED: GLUCAGON 1MG KIT 1 MG ML IM PRN (08:30)
[2021-08-16] MEDS ORDERED: DEXTROSE 50%-WATER 50 ML DISP.SYRIN IV PRN (08:30)
[2021-08-16] MEDS: SPIRONOLACTONE 25 MG TAB PO SCH ×2 (09:00→19:33)
[2021-08-16] MEDS: PROPRANOLOL HCL 10 MG TAB PO SCH ×2 (09:00→19:34)
[2021-08-16] MEDS ORDERED: FUROSEMIDE 80 MG TABLET PO SCH (09:00)
[2021-08-16] MEDS ORDERED: METOLAZONE 2.5 MG TABLET PO SCH (09:00)
[2021-08-16] MEDS: FERROUS SULFATE 325 MG TABLET.DR PO SCH (10:30)
[2021-08-16] MEDS: FOLIC ACID 1 MG TABLET PO SCH (10:31)
[2021-08-16] MEDS: GABAPENTIN 100 MG CAPSULE PO SCH (10:31)
[2021-08-16] MEDS: CYANOCOBALAMIN (VITAMIN B-12) 1,000 MCG TABLET PO SCH (10:32)
[2021-08-16] MEDS: LACTULOSE 20 GM/30 ML UDCUP PO SCH ×2 (10:34→19:34)
[2021-08-16] MEDS: 1/2 NS 1000ML 1,000 ML IV SCH ×2 (10:36→20:49)
[2021-08-16] MEDS: SUCRALFATE 1 GM TABLET PO SCH ×3 (10:45→19:33)
[2021-08-16 11:00] VITALS: BP 119/57
[2021-08-16] MEDS: INSULIN LISPRO 100 UNIT/ML 3ML SQ SCH ×3 (11:00→20:49)
[2021-08-16] MEDS ORDERED: CEFTRIAXONE 1G VIAL IVP SCH (15:00)
[2021-08-16 16:00] VITALS: BP 122/59
[2021-08-16 19:00] VITALS: BP 134/56
[2021-08-16] MEDS: ATORVASTATIN 10 MG TABLET PO SCH (19:33)
[2021-08-17] VITALS: BP 127/60
[2021-08-17 04:00] VITALS: BP 109/55
[2021-08-17] MEDS: INSULIN LISPRO 100 UNIT/ML 3ML SQ SCH (05:12)
[2021-08-17 08:00] VITALS: BP 126/59
[2021-08-17 08:30] LABS: HEMATOCRIT 28.4 % (42-54); MEAN CORPUSCULAR HEMOGLOBIN 31.5 pg (27.0-33.0); MEAN CORPUSCULAR HGB CONC 34.2 g/dL (32.0-36.0); MEAN CORPUSCULAR VOLUME 92.2 fL (79-99); PLATELET COUNT (AUTO) 47 K/uL (130-400); RED BLOOD CELL COUNT(AUTO) 3.08 MIL/uL (4.50-6.20); RED CELL DISTRIBUTION WIDTH 12.8 % (11.0-15.5); WHITE BLOOD COUNT (AUTO) 4.9 K/uL (4.8-10.8)
[2021-08-17 08:38] LABS: CREATININE 2.9 mg/dL (0.5-1.5); POTASSIUM 4.3 mmol/L (3.5-5.1)
[2021-08-17 08:42] LABS: ALBUMIN 2.7 g/dL (3.5-5.0); BILIRUBIN,TOTAL 1.2 mg/dL (0.2-1.0); TOTAL PROTEIN, SERUM 7.2 g/dL (6.0-8.3)
[2021-08-17 09:35] LABS: EOSINOPHILS % (MANUAL) 5 % (1-6); LYMPHOCYTES % (MANUAL) 12 % (22-44); MAN.DIFF COMMENT-IMPRESSION MANUAL DIFFERENTIAL; MONOCYTES % (MANUAL) 6 % (2-9); SEGMENTED NEUTROPHILS % 77 % (40-70)
[2021-08-17 09:36] LABS: PLATELET MORPHOLOGY COMMENT DECREASED
[2021-08-17] MEDS: FERROUS SULFATE 325 MG TABLET.DR PO SCH (10:18)
[2021-08-17] MEDS: LACTULOSE 20 GM/30 ML UDCUP PO SCH (10:18)
[2021-08-17] MEDS: GABAPENTIN 100 MG CAPSULE PO SCH (10:18)
[2021-08-17] MEDS: FOLIC ACID 1 MG TABLET PO SCH (10:18)
[2021-08-17] MEDS: SUCRALFATE 1 GM TABLET PO SCH (10:19)
[2021-08-17] MEDS: CYANOCOBALAMIN (VITAMIN B-12) 1,000 MCG TABLET PO SCH (10:19)
[2021-08-17] MEDS: PROPRANOLOL HCL 10 MG TAB PO SCH (10:19)
== END 2021-08-17 12:35 | disposition home or self-care (01) ==
LOC: EDH 12:30 → EDHIP 14:35 → 3BH 21:57
PROVIDERS: ADMIT Internal Medicine; ATTEND Internal Medicine
DX: A41.9 Sepsis, unspecified organism (principal); Z20.822 Contact with and (suspected) exposure to COVID-19; E86.0 Dehydration; R79.89 Other specified abnormal findings of blood chemistry; I10 Essential (primary) hypertension; E11.9 Type 2 diabetes mellitus without complications; E78.5 Hyperlipidemia, unspecified; D61.818 Other pancytopenia; E78.00 Pure hypercholesterolemia, unspecified; J44.9 Chronic obstructive pulmonary disease, unspecified; K72.90 Hepatic failure, unspecified without coma; K74.60 Unspecified cirrhosis of liver; D72.819 Decreased white blood cell count, unspecified; K76.6 Portal hypertension; Z79.4 Long term (current) use of insulin; Z79.899 Other long term (current) drug therapy; Z98.890 Other specified postprocedural states
CPT/HCPCS: 36415 ×3; 71045; 80053 ×3; 81001; 82140 ×3; 82948 ×5; 83605; 84484; 85025 ×3; 87040 ×2; 87077; 87186; 87635; 87804 ×2; 93005; 96361 ×3; 96372; 96374; 96375; 96376; 99285; C9803; G0378 ×46; J0696 ×2; J2405; J7030

== ENCOUNTER 2021-10-29 19:11 | Emergency (ER) | payer OTHER ==
[~2021-10-29] VITALS: Ht 162.6 cm; Wt 106.6 kg
[~2021-10-29 19:11] MED LIST changes: -FURO80TA3 PO; +INSU200I SQ; -METO5TAB7 PO; -SPIR50TA5 PO
[2021-10-29] MEDS ORDERED: 0.9%NACL 1000ML 1,000 ML IV ONE (19:24)
[2021-10-29] MEDS ORDERED: ACETAMINOPHEN 325 MG TAB PO ONE (19:30)
[2021-10-29] MEDS: 0.9%NACL 1000ML 1,000 ML IV SCH ×2 (19:34→20:48)
[2021-10-29] MEDS ORDERED: ACET-2247 PO (20:21)
[2021-10-29] MEDS ORDERED: IBUPROFEN 200 MG TAB ONE (20:42)
[2021-10-29] MEDS ORDERED: IBUPROFEN 400 MG TABLET ONE (20:42)
[2021-10-29 21:24] VITALS: BP 124/78
== END 2021-10-29 21:27 | disposition home or self-care (01) ==
LOC: EDH 19:11
DX: U07.1 COVID-19 (principal); E86.0 Dehydration; I10 Essential (primary) hypertension; E11.9 Type 2 diabetes mellitus without complications; Z79.1 Long term (current) use of non-steroidal anti-inflammatories (NSAID); Z79.4 Long term (current) use of insulin; Z79.899 Other long term (current) drug therapy
CPT/HCPCS: 99283; 96360; 96361; J7030

== ENCOUNTER → 2022-03-19 | Outpatient (CLI) | payer OTHER ==
[~2022-03-19] MED LIST changes: +ALBUMIN (HUMAN) 25% 200 ML IV SCH; -CEFU500T67 PO; -CLON1PAT13 TD; -FERR-82 PO; +METO5TAB7 PO; +SPIR50TA5 PO
[2022-03-19 08:21] LABS: BASOPHILS % (AUTO) 0.7 % (0.0-5.0); EOSINOPHILS % (AUTO) 3.6 % (0.0-8.0); HEMATOCRIT 27.6 % (42-54); LYMPHOCYTES % (AUTO) 22.9 % (21.0-51.0); MEAN CORPUSCULAR HEMOGLOBIN 31.8 pg (27.0-33.0); MEAN CORPUSCULAR HGB CONC 33.7 g/dL (32.0-36.0); MEAN CORPUSCULAR VOLUME 94.5 fL (79-99); MONOCYTES % (AUTO) 9.2 % (3.0-13.0); NEUTROPHILS % (AUTO) 63.3 % (40.0-77.0); PLATELET COUNT (AUTO) 54 K/uL (130-400); RED BLOOD CELL COUNT(AUTO) 2.92 MIL/uL (4.50-6.20); RED CELL DISTRIBUTION WIDTH 14.4 % (11.0-15.5); WHITE BLOOD COUNT (AUTO) 3.1 K/uL (4.8-10.8)
[2022-03-19 08:37] LABS: INR 1.1 (0.85-1.15); PROTHROMBIN TIME 11.9 SEC (9.6-11.6)
[2022-03-19 08:38] LABS: PARTIAL THROMBOPLASTIN TIME 27.9 SEC (26.3-35.5)
[2022-03-19 08:44] LABS: ALBUMIN 3.2 g/dL (3.5-5.0); POTASSIUM 4.3 mmol/L (3.5-5.1); TOTAL PROTEIN, SERUM 6.8 g/dL (6.0-8.3)
== END | disposition home or self-care (01) ==
LOC: RAH 07:49
PROVIDERS: ATTEND Internal Medicine Gastroenterology
DX: R18.8 Other ascites (principal); K74.69 Other cirrhosis of liver; I10 Essential (primary) hypertension; E11.9 Type 2 diabetes mellitus without complications; D69.59 Other secondary thrombocytopenia; E78.5 Hyperlipidemia, unspecified; J44.9 Chronic obstructive pulmonary disease, unspecified; Z79.4 Long term (current) use of insulin; Z79.899 Other long term (current) drug therapy; Z79.01 Long term (current) use of anticoagulants
CPT/HCPCS: 36415; 76705; 80053; 85025; 85610; 85730; P9046

== ENCOUNTER 2023-03-12 17:13 | Emergency (ER) | payer OTHER ==
[~2023-03-12] VITALS: Ht 170.2 cm; Wt 90.7 kg
[~2023-03-12 17:13] MED LIST changes: -ALBUMIN (HUMAN) 25% 200 ML IV SCH; +CETI10TA57 PO; +RIFA550T PO
[2023-03-12 19:00] LABS: BASOPHILS # (AUTO) 0.01 K/uL (0.00-0.20); BASOPHILS % (AUTO) 0.3 % (0.0-5.0); EOSINOPHILS # (AUTO) 0.07 K/uL (0.00-0.70); HEMATOCRIT 22.1 % (42-54); IMMATURE GRANULOCYTE ABSOLUTE 0.01 K/uL (0-1); LYMPHOCYTES # (AUTO) 0.6 K/uL (1.0-4.8); LYMPHOCYTES % (AUTO) 17.5 % (21.0-51.0); MEAN CORPUSCULAR HEMOGLOBIN 32.6 pg (27.0-33.0); MEAN CORPUSCULAR HGB CONC 33.5 g/dL (32.0-36.0); MEAN CORPUSCULAR VOLUME 97.4 fL (79-99); MONOCYTES # (AUTO) 0.3 K/uL (0.1-1.0); MONOCYTES % (AUTO) 8.2 % (3.0-13.0); NEUTROPHILS # (AUTO) 2.5 K/uL (1.8-7.7); NEUTROPHILS % (AUTO) 71.7 % (40.0-77.0); PLATELET COUNT (AUTO) 34 K/uL (130-400); RED BLOOD CELL COUNT(AUTO) 2.27 MIL/uL (4.50-6.20); WHITE BLOOD COUNT (AUTO) 3.4 K/uL (4.8-10.8)
[2023-03-12 19:12] LABS: CREATININE 6.8 mg/dL (0.5-1.5); POTASSIUM 3.7 mmol/L (3.5-5.1)
[2023-03-12 19:16] LABS: ALBUMIN 2.3 g/dL (3.5-5.0); BILIRUBIN,TOTAL 1.7 mg/dL (0.2-1.0); TOTAL PROTEIN, SERUM 6.3 g/dL (6.0-8.3)
[2023-03-12 19:53] LABS: PLATELET MORPHOLOGY COMMENT MARKED DECREASE
[2023-03-12] MEDS ORDERED: ONDANSETRON 4MG INJ IVP ONE (20:30)
[2023-03-12] MEDS ORDERED: MORPHINE 4 MG SYG IVP ONE (20:30)
[2023-03-12] MEDS ORDERED: HYDR-4060 PO ×2 (21:33→22:29)
[2023-03-12 22:20] VITALS: BP 105/55; PULSE 70; RESP 18; O2SAT 100
== END 2023-03-12 22:33 | disposition home or self-care (01) ==
LOC: EDH 17:13
DX: M48.56XA Collapsed vertebra, not elsewhere classified, lumbar region, initial encounter for fracture (principal); M48.54XA Collapsed vertebra, not elsewhere classified, thoracic region, initial encounter for fracture; I12.0 Hypertensive chronic kidney disease with stage 5 chronic kidney disease or end stage renal disease; E11.22 Type 2 diabetes mellitus with diabetic chronic kidney disease; N18.6 End stage renal disease; Z99.2 Dependence on renal dialysis; Z79.899 Other long term (current) drug therapy; Z98.890 Other specified postprocedural states; X58.XXXA Exposure to other specified factors, initial encounter; Y93.89 Activity, other specified; Y92.89 Other specified places as the place of occurrence of the external cause; Y99.8 Other external cause status
CPT/HCPCS: 99285; 72131; 96374; 71045; 96375; 84484; 80053; 85025; 36415; 72128; J2405; J2270